=== PATIENT | male | born 1960 | race Caucasian/White ===

== ENCOUNTER 2016-07-14 20:06 | Emergency (ER) | payer SELFPAY ==
[~2016-07-14 20:06] MED LIST: IBUP-1007 PO; PANT40TA5 PO
[2016-07-14 20:45] VITALS: BP 129/85
--- NOTE | 2016-07-14 23:15 | PHYS DOC ---
Past Medical History Past Medical History: Hepatitis, Other Additional Past Medical Histor: Hep C, Hypoglycemic Past Surgical History: Other Additional Past Surgical Histo: finger amputations, lypoma removal Alcohol Use: None Drug Use: None Adult General Chief Complaint Chief Complaint: EYE PROBLEMS HPI HPI Patient is a 56 year old now presents emergency department complaint of a foreign body sensation to his right eye. Patient states is been present for approximately an hour prior to his arrival here in the emergency department. He states that he was walking across a parking lot when he felt something hit him in the eye. He states he's had this sensation since that period of time. 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 He states he was wearing safety goggles at that time. He denies any sensation during his period of work. Patient denies any history of chronic eye problems. He states that he does not work contacts. He has no additional complaints or concerns at this time. Review of Systems Review of Systems Constitutional: Denies fever or chills [] Eyes: Denies change in visual acuity, redness, or eye pain [] HENT: Denies nasal congestion or sore throat [] Respiratory: Denies cough or shortness of breath [] Cardiovascular: No additional information not addressed in HPI [] GI: Denies abdominal pain, nausea, vomiting, bloody stools or diarrhea [] : Denies dysuria or hematuria [] Musculoskeletal: Denies back pain or joint pain [] Integument: Denies rash or skin lesions [] Neurologic: Denies headache, focal weakness or sensory changes [] Endocrine: Denies polyuria or polydipsia [] Current Medications Current Medications Current Medications Medications (Trade) Dose Ordered Sig/Michael Start Time Stop Time Status Last Admin Dose Admin Diphtheria/ Tetanus/Acell Pertussis (Boostrix) 0.5 ml ONCE ONCE 07/14/16 23:45 07/14/16 23:46 DC 07/15/16 00:00 0.5 ML Fluorescein Sodium (Ful-Iram) 1 strip 1X ONCE 07/14/16 23:30 07/14/16 23:31 DC 07/14/16 23:21 1 STRIP Tetracaine HCl (Tetracaine) 2 drop 1X ONCE 07/14/16 23:30 07/14/16 23:31 DC 07/14/16 23:21 2 DROP Allergies Allergies Allergies Coded Allergies Type Severity Reaction Last Updated Verified codeine Allergy Severe STOP BREATHING 09/04/15 Yes Physical Exam Physical Exam Constitutional: Well developed, well nourished, no acute distress, non-toxic appearance. [] HENT: Normocephalic, atraumatic, bilateral external ears normal, oropharynx moist, no oral exudates, nose normal. [] Eyes: PERRLA, EOMI, there is mild subconjunctival injection. Tear film is clear. Anterior chamber is deep, clear and quiet. There is no periorbital lesions or abnormalities. There is a small, brown foreign body embedded into the middle of the cornea. There is no rust ring. Neck: Normal range of motion, no tenderness, supple, no stridor. [] Cardiovascular:Heart rate regular rhythm, no murmur [] Lungs & Thorax: Bilateral breath sounds clear to auscultation [] Abdomen: Bowel sounds normal, soft, no tenderness, no masses, no pulsatile masses. [] Skin: Warm, dry, no erythema, no rash. [] Back: No tenderness, no CVA tenderness. [] Extremities: No tenderness, no cyanosis, no clubbing, ROM intact, no edema. [] Neurologic: Alert and oriented X 3, normal motor function, normal sensory function, no focal deficits noted. [] Psychologic: Affect normal, judgement normal, mood normal. [] Current Patient Data Vital Signs Vital Signs Date Time Temp Pulse Resp B/P Pulse Ox O2 Delivery O2 Flow Rate FiO2 07/14/16 20:45 97.8 79 16 96 Room Air 97.8 EKG EKG [] Radiology/Procedures Radiology/Procedures Procedure note: Right eye was anesthetized with 2 drops of tetracaine ophthalmic solution. Attempted removal of a corneal foreign body with a cotton tip applicator was not successful. The foreign body was removed with the tip of a 20-gauge needle. Fluorescein stain evaluation with a was lamp was performed at that time. There is no evidence of any additional abrasions or retained foreign bodies. Both upper and lower eyelids were everted. Course & Med Decision Making Course & Med Decision Making Pertinent Labs and Imaging studies reviewed. (See chart for details) [] Dragon Disclaimer Dragon Disclaimer This electronic medical record was generated, in whole or in part, using a voice recognition dictation system. Departure Departure Impression: Primary Impression: Corneal foreign body Disposition: HOME, SELF-CARE Condition: GOOD Referrals: NO PCP (PCP) Che JOHNSON MD Patient Instructions: Diphtheria Toxoid; Tetanus Toxoid Adsorbed, DT, Td, Eye - Corneal Foreign Body Additional Instructions: 1. The foreign body was successfully removed from your cornea. There is no evidence of any other retained foreign body. 2. Review the discharge instructions provided for self-care and reasons to return to the emergency department. 3. Call the manager dialysis number provided in your paperwork to schedule follow -up if any questions or concerns about the healing of your cornea. Scripts Hydrocodone/Apap 5-325 ([place] 5-325 Tablet)1 Each Tablet1 Tab PO PRN Q6HRS PRN PAIN #10 TAB Ref 0 Prov:NICK DAUGHERYT 07/15/16 Bacitracin/Polymyxin B Sulfate (Bacitracin-Polymyxin Eye Oint)3.5 Gm Oint...g.3.5 Gm OD QID 7 Days Prov:NICK DAUGHERTY 07/15/16 NICK DAUGHERTY Jul 14, 2016 23:15
[2016-07-14] MEDS ORDERED: FLUORESCEIN OPHTH TEST STRIP. OD ONE (23:30)
[2016-07-14] MEDS ORDERED: TETRACAINE 0.5% OPHTH SOLUTION 4ML BOTTLE. OD ONE (23:30)
[2016-07-14] MEDS ORDERED: DIPHTH,PERTUSS(ACELL),TET TOX 0.5 ML DISP.SYRIN. VAX IM ONE (23:45)
[2016-07-15] MEDS ORDERED: HYDR-971 PO (00:09)
[2016-07-15] MEDS ORDERED: BACI3.5O4 OD (00:09)
== END 2016-07-15 00:09 | disposition home or self-care (01) ==
LOC: ER 20:06
DX: T15.01XA Foreign body in cornea, right eye, initial encounter (principal); Z86.19 Personal history of other infectious and parasitic diseases; Z88.5 Allergy status to narcotic agent; X58.XXXA Exposure to other specified factors, initial encounter; Y93.89 Activity, other specified; Y99.8 Other external cause status; Y92.89 Other specified places as the place of occurrence of the external cause
CPT/HCPCS: 65222; 90471; 90715; 99284-25

== ENCOUNTER 2016-08-10 16:03 | Emergency (ER) | payer SELFPAY ==
[~2016-08-10] VITALS: Ht 170.2 cm; Wt 74.8 kg
[~2016-08-10 16:03] MED LIST changes: +BACI3.5O4 OD; +HYDR-971 PO
[2016-08-10] MEDS ORDERED: TETRACAINE 0.5% OPHTH SOLUTION 4ML BOTTLE. OU ONE (16:45)
[2016-08-10] MEDS ORDERED: FLUORESCEIN OPHTH TEST STRIP. OU ONE (16:45)
--- NOTE | 2016-08-10 17:33 | PHYS DOC ---
Past Medical History Past Medical History: Hepatitis, Other Additional Past Medical Histor: Hep C, Hypoglycemic Past Surgical History: Other Additional Past Surgical Histo: finger amputations, lypoma removal Alcohol Use: None Drug Use: None Adult General Chief Complaint Chief Complaint: FOREIGN BODY/EYES HPI HPI Patient is a 56 year old male who presents with a sensation of a foreign body to the right eye. 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 Review of Systems Review of Systems Constitutional: Denies fever or chills [] Eyes: foreign body right eye Musculoskeletal: Denies back pain or joint pain [] Integument: Denies rash or skin lesions [] Neurologic: Denies headache, focal weakness or sensory changes [] Endocrine: Denies polyuria or polydipsia [] Current Medications Current Medications Current Medications Medications (Trade) Dose Ordered Sig/Michael Start Time Stop Time Status Last Admin Dose Admin Fluorescein Sodium (Ful-Iram) 1 strip 1X ONCE 08/10/16 16:45 08/10/16 16:46 DC 08/10/16 17:19 1 STRIP Tetracaine HCl (Tetracaine) 1 drop 1X ONCE 08/10/16 16:45 08/10/16 16:46 DC 08/10/16 17:19 1 DROP Allergies Allergies Allergies Coded Allergies Type Severity Reaction Last Updated Verified codeine Allergy Severe STOP BREATHING 09/04/15 Yes Physical Exam Physical Exam Constitutional: Well developed, well nourished, no acute distress, non-toxic appearance. [] HENT: Normocephalic, atraumatic, bilateral external ears normal, oropharynx moist, no oral exudates, nose normal. [] Eyes: PERRLA, EOMI, right conjunctiva with no erythema, there is an obvious rust ring in the middle of the cornea. The eye was numbed with tetracaine and stained with fluorescein. The eye was evaluated under Wood's lamp and there is a foreign object in the middle of the cornea consistent with a rust ring. Skin: Warm, dry, no erythema, no rash. [] Back: No tenderness, no CVA tenderness. [] Extremities: No tenderness, no cyanosis, no clubbing, ROM intact, no edema. [] Neurologic: Alert and oriented X 3, normal motor function, normal sensory function, no focal deficits noted. [] Psychologic: Affect normal, judgement normal, mood normal. [] Current Patient Data Vital Signs Vital Signs Date Time Temp Pulse Resp B/P Pulse Ox O2 Delivery O2 Flow Rate FiO2 08/10/16 16:07 97.7 77 18 96 Room Air 97.7 EKG EKG [] Radiology/Procedures Radiology/Procedures [] Course & Med Decision Making Course & Med Decision Making Pertinent Labs and Imaging studies reviewed. (See chart for details) Patient is in the ED with a rust ring in the right eye, informed patient he needs to follow-up with them product safety technician which i provided to have it removed. Patient states he was in the ED last week with a rust ring and another provider removed it. Informed patient I don't remove rust rings in the ED he can follow-up with the eye doctor. He stood up and walked away stating he is going to a different hospital. Dragon Disclaimer Dragon Disclaimer This electronic medical record was generated, in whole or in part, using a voice recognition dictation system. Departure Departure Impression: Primary Impression: Foreign body, eye Additional Impression: Corneal rust ring of right eye Disposition: 07 AGAINST MEDICAL ADVICE Condition: STABLE Referrals: NO PCP (PCP) Problem Qualifiers Primary Impression: Foreign body, eye Encounter type: initial encounter Laterality: right Qualified Code: T15.91XA - Foreign body on external eye, part unspecified, right eye, initial encounter ISSA ARIZMENDI APRN Aug 10, 2016 17:33
== END 2016-08-10 17:29 | disposition left against medical advice (07) ==
LOC: ER 16:03
DX: T15.01XA Foreign body in cornea, right eye, initial encounter (principal); Z86.19 Personal history of other infectious and parasitic diseases; Z89.029 Acquired absence of unspecified finger(s); Z88.5 Allergy status to narcotic agent; X58.XXXA Exposure to other specified factors, initial encounter; Y93.89 Activity, other specified; Y92.89 Other specified places as the place of occurrence of the external cause; Y99.8 Other external cause status
CPT/HCPCS: 99283

== ENCOUNTER 2017-05-22 21:04 | Emergency (ER) | payer SELFPAY ==
[2017-05-22 22:04] LABS: ADD MAN DIFF? NO
[2017-05-22 22:07] LABS: BASO # 0.1 x10^3/uL (0.0-0.2); BASO % 1 % (0-3); EOS # 0.1 x10^3/uL (0.0-0.7); EOS % 1 % (0-3); HEMATOCRIT 43.8 % (39.0-53.0); HEMOGLOBIN 14.6 g/dL (13.0-17.5); LYMPH # 3.3 x10^3/uL (1.0-4.8); LYMPH % 23 % (24-48); MEAN CORPUSCULAR HEMOGLOBIN 30 pg (25-35); MEAN CORPUSCULAR HGB CONC 33 g/dL (31-37); MEAN CORPUSCULAR VOLUME 91 fL (79-100); MONO # 1.3 x10^3/uL (0.0-1.1); MONO % 9 % (0-9); NEUT # 9.4 x10^3uL (1.8-7.7); NEUT % 66 % (31-73); PLATELET COUNT 243 x10^3/uL (140-400); RED BLOOD COUNT 4.81 x10^6/uL (4.30-5.70); RED CELL DISTRIBUTION WIDTH 13.5 % (11.5-14.5); WHITE BLOOD COUNT 14.2 x10^3/uL (4.0-11.0)
[2017-05-22 22:21] LABS: ANION GAP 11 (6-14); BLOOD UREA NITROGEN 19 mg/dL (8-26); CALCIUM 8.5 mg/dL (8.5-10.1); CARBON DIOXIDE 29 mmol/L (21-32); CHLORIDE 105 mmol/L (98-107); CREATININE 1.2 mg/dL (0.7-1.3); GFR 62.6; GLUCOSE 137 mg/dL (70-99); POTASSIUM 3.5 mmol/L (3.5-5.1); SODIUM 145 mmol/L (136-145)
[2017-05-22 22:22] LABS: LIPASE 72 U/L (73-393)
[2017-05-22 22:26] LABS: TROPONINI < 0.017 ng/mL (0.000-0.055)
[2017-05-22 23:38] LABS: D-DIMER < 0.27 ug/mlFEU (0.00-0.50)
== END 2017-05-22 23:59 | disposition home or self-care (01) ==
LOC: ER 23:59
DX: F41.9 Anxiety disorder, unspecified (principal); R45.1 Restlessness and agitation; T38.0X5A Adverse effect of glucocorticoids and synthetic analogues, initial encounter; Z86.19 Personal history of other infectious and parasitic diseases; Z88.5 Allergy status to narcotic agent; Y92.89 Other specified places as the place of occurrence of the external cause
CPT/HCPCS: 36415; 71045; 80048; 83690; 84484; 85025; 85379; 93005; 99285-25

== ENCOUNTER 2017-07-09 18:19 | Emergency (ER) | payer SELFPAY ==
[2017-07-09 19:24] LABS: ADD MAN DIFF? NO
[2017-07-09 19:30] LABS: BASO # 0.1 x10^3/uL (0.0-0.2); BASO % 1 % (0-3); EOS # 0.2 x10^3/uL (0.0-0.7); EOS % 2 % (0-3); HEMATOCRIT 42.9 % (39.0-53.0); HEMOGLOBIN 14.7 g/dL (13.0-17.5); LYMPH # 2.2 x10^3/uL (1.0-4.8); LYMPH % 22 % (24-48); MEAN CORPUSCULAR HEMOGLOBIN 31 pg (25-35); MEAN CORPUSCULAR HGB CONC 34 g/dL (31-37); MEAN CORPUSCULAR VOLUME 90 fL (79-100); MONO % 10 % (0-9); NEUT # 6.5 x10^3uL (1.8-7.7); NEUT % 66 % (31-73); PLATELET COUNT 222 x10^3/uL (140-400); RED BLOOD COUNT 4.77 x10^6/uL (4.30-5.70); RED CELL DISTRIBUTION WIDTH 13.4 % (11.5-14.5); WHITE BLOOD COUNT 9.9 x10^3/uL (4.0-11.0)
[2017-07-09] MEDS: ASPIRIN CHEWABLE 81 MG TABLET. PO (19:34)
[2017-07-09 19:42] LABS: INR 1.1 (0.8-1.1); PARTIAL THROMBOPLASTIN TIME 33 SEC (24-38); PROTHROMBIN TIME PATIENT 13.5 SEC (11.7-14.0)
[2017-07-09 19:43] LABS: ANION GAP 12 (6-14); BLOOD UREA NITROGEN 15 mg/dL (8-26); CALCIUM 8.7 mg/dL (8.5-10.1); CARBON DIOXIDE 26 mmol/L (21-32); CHLORIDE 105 mmol/L (98-107); CREATININE 1.1 mg/dL (0.7-1.3); GLUCOSE 121 mg/dL (70-99); POTASSIUM 3.8 mmol/L (3.5-5.1); SODIUM 143 mmol/L (136-145)
[2017-07-09 19:49] LABS: ALBUMIN 3.6 g/dL (3.4-5.0); ALK PHOS 135 U/L (46-116); ALT (SGPT) 37 U/L (16-63); AST (SGOT) 21 U/L (15-37); DIRECT BILIRUBIN 0.1 mg/dL (0.0-0.2); LIPASE 56 U/L (73-393); TOTAL BILIRUBIN 0.3 mg/dL (0.2-1.0); TOTAL PROTEIN 6.9 g/dL (6.4-8.2)
[2017-07-09 19:50] LABS: TROPONINI < 0.017 ng/mL (0.000-0.055)
[2017-07-09 19:54] LABS: NT-PRO BNP 46 pg/mL (0-124)
[2017-07-09] MEDS ORDERED: ONDANSETRON PF 4 MG/2 ML VIAL. IV (20:15)
[2017-07-09] MEDS: IV NORMAL SALINE 1000ML BAG 1,000 ML IV (21:05)
== END 2017-07-09 21:10 | disposition left against medical advice (07) ==
LOC: ER 18:19 → 6 SOUTH 20:11
DX: R07.9 Chest pain, unspecified (principal); Z88.5 Allergy status to narcotic agent
CPT/HCPCS: 36415; 71045; 80048; 80076; 83690; 83880; 84484; 85025; 85610; 85730; 93005; 99285-25; J7030

== ENCOUNTER 2017-07-09 23:11 | Inpatient (IN) | payer SELFPAY ==
[2017-07-09 23:56] LABS: TROPONINI < 0.017 ng/mL (0.000-0.055)
[2017-07-10] MEDS ORDERED: ONDANSETRON PF 4 MG/2 ML VIAL. IV
[2017-07-10] MEDS ORDERED: NITROGLYCERIN SUBLINGUAL 0.4 MG BOTTLE OF 25. SL
[2017-07-10] MEDS: IV NORMAL SALINE 1000ML BAG 1,000 ML IV (00:02)
[2017-07-10 05:08] LABS: TROPONINI < 0.017 ng/mL (0.000-0.055)
[2017-07-10 06:27] LABS: TROPONINI < 0.017 ng/mL (0.000-0.055)
[2017-07-10 08:33] LABS: CHOLESTEROL 121 mg/dL (0-200); HDLC 51 mg/dL (40-60); LDLC 63 mg/dL (0-100); NON-HDL CHOLESTEROL 70 mg/dL (0-129); TRIGLYCERIDES 37 mg/dL (0-150); VLDLC 7 mg/dL (0-40)
[2017-07-10 08:40] LABS: CHOLESTEROL/HDL RATIO 2.4
[2017-07-10] MEDS ORDERED: HYDROcodone/APAP 5/325MG 1 TAB TABLET PO (09:15)
[2017-07-10] MEDS: PANTOPRAZOLE 40 MG TABLET.DR. PO (09:51)
[2017-07-10] MEDS: LIDOCAINE (700MG/PATCH) PATCH. TD (09:51)
[2017-07-10 09:55] LABS: THYROID STIM HORMONE (TSH) 4.912 uIU/mL (0.358-3.74)
[2017-07-10] MEDS: BACITRACIN/POLYMYXIN B OPHTH OINTMENT 3.5GM TUBE. OD ×2 (10:00→12:26)
[2017-07-10 13:32] LABS: BARBITURATES NEG (NEG); BENZODIAZEPINES NEG (NEG); CANNABINOIDS NEG (NEG); COCAINE NEG (NEG); METHADONE NEG (NEG); OPIATES NEG (NEG); PHENCYCLIDINE NEG (NEG)
[2017-07-10 13:33] LABS: AMPHETAMINE/METHAMPHETAMINE NEG (NEG); ETHANOL, URINE NEG (NEG)
== END 2017-07-10 14:46 | disposition home or self-care (01) ==
LOC: 6 SOUTH 23:57 → ER 23:11
PROVIDERS: Internal Medicine
DX: R07.89 Other chest pain (principal); K21.9 Gastro-esophageal reflux disease without esophagitis; T14.8XXA Other injury of unspecified body region, initial encounter; X58.XXXA Exposure to other specified factors, initial encounter; Z82.49 Family history of ischemic heart disease and other diseases of the circulatory system; Z87.891 Personal history of nicotine dependence; Z88.8 Allergy status to other drugs, medicaments and biological substances; Y93.89 Activity, other specified; Y92.89 Other specified places as the place of occurrence of the external cause; Y99.8 Other external cause status; Z89.022 Acquired absence of left finger(s)
CPT/HCPCS: 36415; 80061; 80307; 84443; 84484; 93005; 93306; 99285-25; J7030

== ENCOUNTER 2018-04-20 19:03 | Emergency (ER) | payer SELFPAY ==
[~2018-04-20] VITALS: Ht 170.2 cm; Wt 77.1 kg
[~2018-04-20 19:03] MED LIST changes: +HYDR-3164 PO; -HYDR-971 PO
[2018-04-20 19:15] VITALS: BP 175/87
--- NOTE | 2018-04-21 04:41 | PHYS DOC ---
Past Medical History Past Medical History: Hepatitis, Other Additional Past Medical Histor: Hep C, Hypoglycemic, Past Surgical History: Other Additional Past Surgical Histo: finger amputations, lypoma removal Alcohol Use: None Drug Use: None Adult General Chief Complaint Chief Complaint: DIFFICULTY SWALLOWING HPI HPI Patient is a 57 year old male with history of dysphagia and poor dentition who presents with difficulty swallowing after eating a cheeseburger. Patient is not able to chew the well and reports sticking sensation in his throat. He is able to drink water pertinent review the arrival and can eat crackers while in the emergency department. Denies foreign body sensation. Patient has not been evaluated by a GI physician for this condition. No chest pain shortness of breath, cough or choking episodes. No other acute symptoms or complaints. [] Review of Systems Review of Systems Review symptoms as per history of present illness. All other review symptoms are negative. All other systems were reviewed and found to be within normal limits, except as documented in this note. Allergies Allergies Allergies Coded Allergies Type Severity Reaction Last Updated Verified codeine Allergy Severe STOP BREATHING 09/04/15 Yes Physical Exam Physical Exam Constitutional: Well developed, well nourished, no acute distress, non-toxic appearance. [] HENT: Normocephalic, atraumatic, bilateral external ears normal, oropharynx moist, no oral exudates, nose normal. [] Eyes: PERRLA, EOMI, conjunctiva normal, no discharge. [] Neck: Normal range of motion, no tenderness, supple, no stridor. [] Neurologic: Alert and oriented X 3, normal motor function, normal sensory function, no focal deficits noted. [] Psychologic: Affect normal, judgement normal, mood normal. [] Current Patient Data Vital Signs Vital Signs Date Time Temp Pulse Resp B/P (MAP) Pulse Ox O2 Delivery O2 Flow Rate FiO2 04/20/18 19:15 98.0 69 16 175/87 (116) 97 Room Air 98.0 EKG EKG [] Radiology/Procedures Radiology/Procedures [] Course & Med Decision Making Course & Med Decision Making Pertinent Labs and Imaging studies reviewed. (See chart for details) [Patient able to drink and swallow without difficulty in the ED. Recommend supportive care and PCP follow-up for GI referral.] Dragon Disclaimer Dragon Disclaimer This electronic medical record was generated, in whole or in part, using a voice recognition dictation system. Departure Departure Impression: Primary Impression: Dysphagia Disposition: 01 HOME, SELF-CARE Condition: STABLE Patient Instructions: Dysphagia Additional Instructions: Please take Pepcid 20 mg twice daily and follow strict soft diet. Follow up with local primary care physician for consideration of GI physician referral. Return to the ED if new or worsening symptoms. JOSE CORBETT DO Apr 21, 2018 04:41
== END 2018-04-20 19:58 | disposition home or self-care (01) ==
LOC: ER 19:03
DX: R13.10 Dysphagia, unspecified (principal); Z86.19 Personal history of other infectious and parasitic diseases; Z88.5 Allergy status to narcotic agent
CPT/HCPCS: 99281

== ENCOUNTER 2018-10-15 18:28 | Emergency (ER) | payer SELFPAY ==
[~2018-10-15] VITALS: Ht 170.2 cm; Wt 79.4 kg
[2018-10-15 19:12] VITALS: BP 142/92
--- NOTE | 2018-10-15 19:46 | PHYS DOC ---
Past Medical History Past Medical History: Hepatitis, Other Additional Past Medical Histor: Hep C, Hypoglycemic, (MICHAEL QUEEN APRN) Past Surgical History: Tonsillectomy, Other Additional Past Surgical Histo: finger amputations, lypoma removal (MICHAEL QUEEN APRN) Alcohol Use: None Drug Use: None (MICHAEL QUEEN APRN) Adult General Chief Complaint Chief Complaint: EYE PROBLEMS HPI HPI Patient is a 58 year old male who presents with right eye pain has been ongoing for 2 hours. The patient states she was walking across a parking lot and the wind was blowing all the sudden his eye became irritated and painful. The patient rates his pain as 3 out of 10 and states it is just irritating. They see tried irrigating however the eye still hurts. (MICHAEL QUEEN APRN) Review of Systems Review of Systems Constitutional: Denies fever or chills [] Eyes: Denies change in visual acuity, Reports redness, and eye pain [] HENT: Denies nasal congestion or sore throat [] Respiratory: Denies cough or shortness of breath [] Cardiovascular: No additional information not addressed in HPI [] GI: Denies abdominal pain, nausea, vomiting, bloody stools or diarrhea [] : Denies dysuria or hematuria [] Musculoskeletal: Denies back pain or joint pain [] Integument: Denies rash or skin lesions [] Neurologic: Denies headache, focal weakness or sensory changes [] Endocrine: Denies polyuria or polydipsia [] Complete systems were reviewed and found to be within normal limits, except as documented in this note. (MICHAEL QUEEN APRN) Allergies Allergies Allergies Coded Allergies Type Severity Reaction Last Updated Verified codeine Allergy Severe STOP BREATHING 09/04/15 Yes (LARISSA RIGGS MD) Physical Exam Physical Exam Constitutional: Well developed, well nourished, no acute distress, non-toxic appearance. [] HENT: Normocephalic, atraumatic, bilateral external ears normal, oropharynx moist, no oral exudates, nose normal. [] Eyes: PERRLA, EOMI, conjunctiva red on the right side, has black speck of dirt under upper right side of eye lid, no discharge. [] Neck: Normal range of motion, no tenderness, supple, no stridor. [] Cardiovascular:Heart rate regular rhythm, no murmur [] Lungs & Thorax: Bilateral breath sounds clear to auscultation [] Abdomen: Bowel sounds normal, soft, no tenderness, no masses, no pulsatile masses. [] Skin: Warm, dry, no erythema, no rash. [] Back: No tenderness, no CVA tenderness. [] Extremities: No tenderness, no cyanosis, no clubbing, ROM intact, no edema. [] Neurologic: Alert and oriented X 3, normal motor function, normal sensory function, no focal deficits noted. [] Psychologic: Affect normal, judgement normal, mood normal. [] (MICHAEL QUEEN APRN) Current Patient Data Vital Signs Vital Signs Date Time Temp Pulse Resp B/P (MAP) Pulse Ox O2 Delivery O2 Flow Rate FiO2 10/15/18 19:12 97.9 86 17 142/92 (109) 100 Room Air 97.9 (LARISSA RIGGS MD) EKG EKG [] (MICHAEL QUEEN APRN) Radiology/Procedures Radiology/Procedures [] (MICHAEL QUEEN APRN) Course & Med Decision Making Course & Med Decision Making Pertinent Labs and Imaging studies reviewed. (See chart for details) Will have nursing staff irrigate the eye. Nursing staff irrigated the eye and the foreign body came out. Patient states that he feels better. Will d/c home. (MICHAEL QUEEN APRN) Course & Med Decision Making Staff Physician Addendum: I was working in the ER during the course of this patient's visit. I was arnold ilable for consultation as needed, but I was not directly involved in the care of this patient. (LARISSA RIGGS MD) Dragon Disclaimer Dragon Disclaimer This electronic medical record was generated, in whole or in part, using a voice recognition dictation system. (MICHAEL QUEEN APRN) Departure Departure Impression: Primary Impression: Foreign body, eye Disposition: HOME, SELF-CARE Condition: STABLE Referrals: NO PCP (PCP) Patient Instructions: Eye - Foreign Body Additional Instructions: Thank you for visiting [facility]. We appreciate you trusting us with your care. If any additional problems come up don't hesitate to return to visit us. Please follow up with your primary care provider so they can plan additional care if needed and know about the problem that you had. If symptoms worsen come back to the Emergency Department. Any concerning symptoms that start such as chest pain, shortness of Air, weakness or numbness on one side of the body, running high fevers or any other concerning symptoms return to the ER. Problem Qualifiers Primary Impression: Foreign body, eye Encounter type: initial encounter Laterality: right Qualified Codes: T15.91XA - Foreign body on external eye, part unspecified, right eye, initial encounter MICHAEL QUEEN APRN Oct 15, 2018 19:46 LARISSA RIGGS MD Oct 18, 2018 18:47
== END 2018-10-15 20:18 | disposition home or self-care (01) ==
LOC: ER 18:28
DX: T15.91XA Foreign body on external eye, part unspecified, right eye, initial encounter (principal); Z88.5 Allergy status to narcotic agent; Z90.89 Acquired absence of other organs
CPT/HCPCS: 99282; 99284

== ENCOUNTER 2018-10-20 18:44 | Emergency (ER) | payer SELFPAY ==
[~2018-10-20] VITALS: Ht 170.2 cm; Wt 77.1 kg
[2018-10-20 18:49] VITALS: BP 179/92
--- NOTE | 2018-10-20 19:24 | PHYS DOC ---
Past Medical History Past Medical History: Hepatitis, Other Additional Past Medical Histor: Hep C, Hypoglycemic, Past Surgical History: Tonsillectomy, Other Additional Past Surgical Histo: finger amputations, lypoma removal Smoking: Quit Greater Than 1 Year Alcohol Use: None Drug Use: None Adult General Chief Complaint Chief Complaint: LOWER BACK PAIN OR INJURY HPI HPI Patient is a 58 year old male who presents with back pain that started this afternoon. Patient was location of the pain as left lower back. The patient states that he's had this back pain once before long time ago and went away. Denies any trauma. Rates his pain as 8 out of 10 and sharp. Has not taken any medication for the pain before arrival. Review of Systems Review of Systems Constitutional: Denies fever or chills [] Eyes: Denies change in visual acuity, redness, or eye pain [] HENT: Denies nasal congestion or sore throat [] Respiratory: Denies cough or shortness of breath [] Cardiovascular: No additional information not addressed in HPI [] GI: Denies abdominal pain, nausea, vomiting, bloody stools or diarrhea [] : Denies dysuria or hematuria [] Musculoskeletal: Reports back pain denies joint pain [] Integument: Denies rash or skin lesions [] Neurologic: Denies headache, focal weakness or sensory changes [] Endocrine: Denies polyuria or polydipsia [] Complete systems were reviewed and found to be within normal limits, except as documented in this note. Current Medications Current Medications Current Medications Medications (Trade) Dose Ordered Sig/[facility] Start Time Stop Time Status Last Admin Dose Admin Ketorolac Tromethamine (Toradol Im) 30 mg 1X ONCE 10/20/18 19:30 10/20/18 19:31 DC 10/20/18 19:31 30 MG Allergies Allergies Allergies Coded Allergies Type Severity Reaction Last Updated Verified codeine Allergy Severe STOP BREATHING 09/04/15 Yes Physical Exam Physical Exam Constitutional: Well developed, well nourished, no acute distress, non-toxic appearance. [] HENT: Normocephalic, atraumatic, bilateral external ears normal, oropharynx moist, no oral exudates, nose normal. [] Eyes: PERRLA, EOMI, conjunctiva normal, no discharge. [] Neck: Normal range of motion, no tenderness, supple, no stridor. [] Cardiovascular:Heart rate regular rhythm, no murmur [] Lungs & Thorax: Bilateral breath sounds clear to auscultation [] Abdomen: Bowel sounds normal, soft, no tenderness, no masses, no pulsatile masses. [] Skin: Warm, dry, no erythema, no rash. [] Back: Lumbar Tenderness and tenderness to the left side of the lumbar spine, no CVA tenderness. [] Extremities: No tenderness, no cyanosis, no clubbing, ROM intact, no edema. [] Neurologic: Alert and oriented X 3, normal motor function, normal sensory function, no focal deficits noted. [] Psychologic: Affect normal, judgement normal, mood normal. [] Current Patient Data Lab Values Laboratory Tests Test 10/20/18 19:15 Urine Collection Type Unknown Urine Color Yellow Urine Clarity Clear Urine pH 6.0 Urine Specific [place] 1.025 Urine Protein Negative mg/dL (NEG-TRACE) Urine Glucose (UA) Negative mg/dL (NEG) Urine Ketones (Stick) Negative mg/dL (NEG) Urine Blood Negative (NEG) Urine Nitrite Negative (NEG) Urine Bilirubin Negative (NEG) Urine Urobilinogen Dipstick 0.2 mg/dL (0.2 mg/dL) Urine Leukocyte Esterase Negative (NEG) Urine RBC 0 /HPF (0-2) Urine WBC 0 /HPF (0-4) Urine Squamous Epithelial Cells Occ /LPF Urine Bacteria 0 /HPF (0-FEW) EKG EKG [] Radiology/Procedures Radiology/Procedures Preliminary Xray is read by Dr. Lawrence No acute findings.[] Course & Med Decision Making Course & Med Decision Making Pertinent Labs and Imaging studies reviewed. (See chart for details) Will get a x-ray of the lumbar spine. Will check his UA, and give Toradol. The patient is driving home so will prescribe Flexeril for him to take at home. x-ray and urine is negative. Dragon Disclaimer Dragon Disclaimer This electronic medical record was generated, in whole or in part, using a voice recognition dictation system. Departure Departure Impression: Primary Impression: Back pain Disposition: HOME, SELF-CARE Condition: STABLE Referrals: NO PCP (PCP) Patient Instructions: Musculoskeletal Pain Additional Instructions: Thank you for visiting [facility]. We appreciate you trusting us with your care. If any additional problems come up don't hesitate to return to visit us. Please follow up with your primary care provider so they can plan additional care if needed and know about the problem that you had. If symptoms worsen come back to the Emergency Department. Any concerning symptoms that start such as chest pain, shortness of Air, weakness or numbness on one side of the body, running high fevers or any other concerning symptoms return to the ER. Please fill your medications at any pharmacy and follow the prescription instructions. Scripts Cyclobenzaprine Hcl (CYCLOBENZAPRINE HCL) 10 Mg Tablet 1 TAB PO TID PRN for MUSCLE SPASMS, #30 TAB Prov: MICHAEL QUEEN APRN 10/20/18 Problem Qualifiers Primary Impression: Back pain Back pain location: low back pain Chronicity: acute Back pain laterality: left Sciatica presence: without sciatica Qualified Codes: M54.5 - Low back pain MICHAEL QUEEN APRN Oct 20, 2018 19:24
[2018-10-20 19:28] LABS: BILIRUBIN,URINE NEGATIVE (NEG); CLARITY,URINE CLEAR; COLOR,URINE YELLOW; NITRITE,URINE NEGATIVE (NEG); PROTEIN,URINE NEGATIVE (NEG-TRACE); UROBILINOGEN,URINE 0.2 mg/dL (0.2 mg/dL)
[2018-10-20] MEDS ORDERED: KETOROLAC 60 MG/2 ML VIAL. IM ONE (19:30)
[2018-10-20 19:34] LABS: BACTERIA,URINE 0 /HPF (0-FEW); RBC,URINE 0 /HPF (0-2); SQUAMOUS EPITHELIAL CELL,UR OCC /LPF; WBC,URINE 0 /HPF (0-4)
[2018-10-20] MEDS ORDERED: CYCL10TA2 PO (19:43)
--- NOTE | 2018-10-21 08:04 | RAD ---
EXAM: AP, lateral and lumbosacral spot views of the lumbar spine DATE: 10/20/2018 7:16 PM INDICATION: low back pain COMPARISON: No Prior FINDINGS: Vertebral body heights are preserved. Trace disc height loss T12-L1, L1-2, L5-S1. Mild facet degenerative changes L4-5, L5-S1. No evidence for fracture. Mild straightening of the lumbar spine. No spondylolisthesis. IMPRESSION: No evidence for acute fracture or subluxation. Electronically signed by: Ar Condon MD (10/21/2018 8:02 AM) [facility]
== END 2018-10-20 20:04 | disposition home or self-care (01) ==
LOC: ER 18:44
DX: M54.5 Low back pain (principal); Z90.89 Acquired absence of other organs; Z87.891 Personal history of nicotine dependence; Z88.5 Allergy status to narcotic agent
CPT/HCPCS: 72100; 81001; 96372; 99285; J1885

== ENCOUNTER 2018-12-14 21:20 | Emergency (ER) | payer SELFPAY ==
[~2018-12-14] VITALS: Ht 170.2 cm; Wt 77.1 kg
[~2018-12-14 21:20] MED LIST changes: +CYCL10TA2 PO; -PANT40TA5 PO; +PANT40TA77 PO
[2018-12-14 22:10] VITALS: BP 141/85
--- NOTE | 2018-12-14 22:22 | PHYS DOC ---
Past Medical History Past Medical History: Hepatitis, Other Additional Past Medical Histor: Hep C, Hypoglycemic, (WYATT MADRIGAL APRN) Past Surgical History: Tonsillectomy, Other Additional Past Surgical Histo: finger amputations, lypoma removal (WYATT MADRIGAL APRN) Alcohol Use: None Drug Use: None (WYATT MADRIGAL APRN) Adult General Chief Complaint Chief Complaint: INSECT BITE [facility] HPI Patient is a 58 year old male who presents to the emergency Department today with complaints of insect bites all over his chest, back, abdomen, and upper arms. Pt states he just noticed the bites tonight. He denies any pain, drainage, or bleeding from the sites. He reports that some of the areas are itchy. Pt states he was outside earlier today but didn't notice the bites until tonight. Pt states his indoor animals are treated for fleas with oral medication regularly. ROS Pt denies any fever, sore throat, ear pain, shortness of breath, wheezing, nausea, vomiting, or diarrhea. He denies any new medications, foods, detergents, or perfumes. All other ROS is neg unless otherwise noted in HPI. (WYATT MADRIGAL APRN) Review of Systems Review of Systems See Above (WYATT MADRIGAL APRN) Allergies Allergies Allergies Coded Allergies Type Severity Reaction Last Updated Verified codeine Allergy Severe STOP BREATHING 09/04/15 Yes (MICHAEL CODY DO) Physical Exam Physical Exam See Above Constitutional: Well developed, well nourished, no acute distress, non-toxic appearance. [] HENT: Normocephalic, atraumatic, bilateral external ears normal, oropharynx moist, nose normal. [] Eyes: conjunctiva normal, no discharge. [] Neck: Normal range of motion, no stridor. [] Cardiovascular:Heart rate regular rhythm, no murmur [] Lungs & Thorax: Bilateral breath sounds clear to auscultation [] Skin: Warm, dry, no erythema; scattered erythremic patches with central punctum consistent with allergic reaction to insect sting/bite noted to trunk, back, and upper arms bilat Back: No tenderness Extremities: No tenderness, no cyanosis, ROM intact, no edema. [] Neurologic: Alert and oriented X 3, no focal deficits noted. [] Psychologic: Affect normal, judgement normal, mood normal. [] (WYATT MADRIGAL APRN) Current Patient Data Vital Signs Vital Signs Date Time Temp Pulse Resp B/P (MAP) Pulse Ox O2 Delivery O2 Flow Rate FiO2 12/14/18 22:10 97.7 76 18 141/85 (103) 94 Room Air 97.7 (MICHAEL CODY DO) EKG EKG [] (WYATT MADRIGAL APRN) Radiology/Procedures Radiology/Procedures [] (WYATT MADRIGAL APRN) Course & Med Decision Making Course & Med Decision Making Pertinent Labs and Imaging studies reviewed. (See chart for details) dx: insect sting/bite allergic reaction Advised patient to use [id number] hydrocortisone cream or Benadryl cream as needed. Recommend oral Benadryl every 6 hours as needed. Cool washcloth. Follow-up with primary care doctor if symptoms persist, return to the ER symptoms worsen. Patient verbalized an understanding of home care, medications, follow-up, and return to ED instructions and was in agreement with the plan of care. [] (WYATT MADRIGAL APRN) Dragon Disclaimer Dragon Disclaimer This electronic medical record was generated, in whole or in part, using a voice recognition dictation system. (WYATT MADRIGAL APRN) Departure Departure Impression: Primary Impression: Allergic reaction to insect bite Disposition: 01 HOME, SELF-CARE Condition: STABLE Referrals: NO PCP (PCP) Patient Instructions: Insect Bite, [id number] Additional Instructions: Recommend application of [id number] hydrocortisone cream, or Benadryl cream to the red areas as needed for itching, take Benadryl 25 mg every 6 hours as needed to help reduce reaction. You might apply ice packs to the areas for r elief. Follow-up with your primary care doctor if symptoms persist, return to the ER if symptoms worsen. Attending Signature Attending Signature I have reviewed the PA/APPRAISER ART's note and plan of care. I was available for consultation as needed during the patient's visit in the emergency department. I agree with the clinical impression, plan, and disposition. (MICHAEL CODY DO) WYATT MADRIGAL APRN Dec 14, 2018 22:22 MICHAEL CODY DO Dec 15, 2018 01:23
== END 2018-12-14 22:47 | disposition home or self-care (01) ==
LOC: ER 21:20
DX: T63.481A Toxic effect of venom of other arthropod, accidental (unintentional), initial encounter (principal); Z90.89 Acquired absence of other organs; Z89.029 Acquired absence of unspecified finger(s); Z88.5 Allergy status to narcotic agent; Y92.89 Other specified places as the place of occurrence of the external cause
CPT/HCPCS: 99281

== ENCOUNTER 2018-12-17 21:06 | Emergency (ER) | payer SELFPAY ==
[~2018-12-17] VITALS: Ht 170.2 cm; Wt 77.1 kg
[2018-12-17 21:25] VITALS: BP 138/96
[2018-12-17] MEDS ORDERED: SULF1TAB24 PO (21:36)
--- NOTE | 2018-12-17 21:37 | PHYS DOC ---
Past Medical History Past Medical History: No Pertinent History Additional Past Medical Histor: Hep C (ISSA ARIZMENDI APRN) Past Surgical History: No Surgical History Additional Past Surgical Histo: Traumatic finger amputation age 18, lipoma removal (ISSA ARIZMENDI APRN) Alcohol Use: None Drug Use: None (ISSA ARIZMENDI APRN) Adult General Chief Complaint Chief Complaint: FOOT INJURY PAIN HPI HPI Patient is a 58 year old male with no significant medical history who presents to the ED today complaining of infected insect bites to the right foot. Patient states his had the insect bite for roughly 3 days. Was seen in the ED 3 days ago. Has been using hydrocortisone as recommended but has noted areas of cellulitis of the foot. Denies any fever. Denies any nausea, vomiting. (ISSA ARIZMENDI APRN) Review of Systems Review of Systems Constitutional: Denies fever or chills [] Musculoskeletal: Denies back pain or joint pain [] Integument: Reports right foot infected insect bite Neurologic: Denies headache, focal weakness or sensory changes [] All other systems were reviewed and found to be within normal limits, except as documented in this note. (ISSA ARIZMENDI APRN) Current Medications Current Medications Current Medications Medications (Trade) Dose Ordered Sig/Michael Start Time Stop Time Status Last Admin Dose Admin Diphtheria/ Tetanus/Acell Pertussis (Boostrix) 0.5 ml ONCE ONCE 12/17/18 22:00 12/17/18 21:53 DC 12/17/18 21:44 0.5 ML Trimethoprim/ Sulfamethoxazole (Bactrim Ds) 1 tab 1X ONCE 12/17/18 22:00 12/17/18 21:53 DC 12/17/18 21:44 1 TAB (LARISSA RIGGS MD) Allergies Allergies Allergies Coded Allergies Type Severity Reaction Last Updated Verified codeine Allergy Severe STOP BREATHING 09/04/15 Yes (LARISSA RIGGS MD) Physical Exam Physical Exam Constitutional: Well developed, well nourished, no acute distress, non-toxic appearance. [] Skin: Warm, dry, right ventral foot with scattered areas of cellulitis consistent with insect bites that have become infected. No drainage. Full range of motion to the right foot. +2 right pedal pulse. Back: No tenderness, no CVA tenderness. [] Extremities: No tenderness, no cyanosis, no clubbing, ROM intact, no edema. [] Neurologic: Alert and oriented X 3, normal motor function, normal sensory function, no focal deficits noted. [] Psychologic: Affect normal, judgement normal, mood normal. [] (ISSA ARIZMENDI APRN) Current Patient Data Vital Signs Vital Signs Date Time Temp Pulse Resp B/P (MAP) Pulse Ox O2 Delivery O2 Flow Rate FiO2 12/17/18 21:25 98.0 110 18 95 Room Air 98.0 (LARISSA RIGGS MD) EKG EKG [] (ISSA ARIZMENDI APRN) Radiology/Procedures Radiology/Procedures [] (ISSA ARIZMENDI APRN) Course & Med Decision Making Course & Med Decision Making Pertinent Labs and Imaging studies reviewed. (See chart for details) This is a 58-year-old male patient presents to the ED today with cellulitis of the right foot from insect bites. Will be discharged on Bactrim. Tetanus up-to-dated. Wound care instructions and return precautions provided. (ISSA ARIZMENDI APRN) Course & Med Decision Making Staff Physician Addendum: I was working in the ER during the course of this patient's visit. I was available for consultation as needed, but I was not directly involved in the ca re of this patient. (LARISSA RIGGS MD) Dragon Disclaimer Dragon Disclaimer This electronic medical record was generated, in whole or in part, using a voice recognition dictation system. (ISSA ARIZMENDI APRN) Departure Departure Impression: Primary Impression: Cellulitis of right foot Disposition: HOME, SELF-CARE Condition: STABLE Referrals: NO PCP (PCP) Follow-up with your doctor in 1-2 weeks Patient Instructions: Cellulitis, [id number] Additional Instructions: You have infected insect bites to the right foot. Take the prescribed antibiotics as ordered until completed. Follow-up with your doctor in 1-2 weeks. Scripts Sulfamethoxazole/Trimethoprim (BACTRIM DS TABLET) 1 Each Tablet 1 TAB PO BID, #20 TAB Prov: ISSA ARIZMENDI APRN 12/17/18 ISSA ARIZMENDI APRN Dec 17, 2018 21:37 LARISSA RIGGS MD Dec 21, 2018 05:30
[2018-12-17] MEDS ORDERED: DIPHTH,PERTUSS(ACELL),TET TOX 0.5 ML DISP.SYRIN. VAX IM ONE (22:00)
[2018-12-17] MEDS ORDERED: SMZ/TMP 800/160MG TABLET. PO ONE (22:00)
== END 2018-12-17 21:53 | disposition home or self-care (01) ==
LOC: ER 21:06
DX: S90.861A Insect bite (nonvenomous), right foot, initial encounter (principal); Z88.5 Allergy status to narcotic agent; W57.XXXA Bitten or stung by nonvenomous insect and other nonvenomous arthropods, initial encounter; Y93.89 Activity, other specified; Y92.89 Other specified places as the place of occurrence of the external cause; Y99.8 Other external cause status
CPT/HCPCS: 90471; 90715; 96372; 99283

== ENCOUNTER 2019-05-01 17:22 | Emergency (ER) | payer SELFPAY ==
[~2019-05-01] VITALS: Ht 175.3 cm; Wt 72.6 kg
[~2019-05-01 17:22] MED LIST changes: +SULF1TAB24 PO
[2019-05-01 18:05] LABS: BILIRUBIN,URINE NEGATIVE (NEG); CLARITY,URINE CLEAR; COLOR,URINE YELLOW; NITRITE,URINE NEGATIVE (NEG); PROTEIN,URINE NEGATIVE (NEG-TRACE); UROBILINOGEN,URINE 0.2 mg/dL (0.2 mg/dL)
[2019-05-01 18:12] LABS: BARBITURATES NEG (NEG); BENZODIAZEPINES NEG (NEG); CANNABINOIDS NEG (NEG); COCAINE NEG (NEG); METHADONE NEG (NEG); OPIATES NEG (NEG); PHENCYCLIDINE NEG (NEG)
[2019-05-01 18:13] LABS: BACTERIA,URINE 0 /HPF (0-FEW); RBC,URINE 0 /HPF (0-2)
[2019-05-01 18:17] LABS: AMPHETAMINE/METHAMPHETAMINE NEG (NEG)
--- NOTE | 2019-05-01 18:20 | PHYS DOC ---
Past Medical History Past Medical History: Other Additional Past Medical Histor: Hep C, HYPOGLYCEMIC (LASHA AVILA APRN) Past Surgical History: Other Additional Past Surgical Histo: Traumatic finger amputation L HAND, lipoma removal (LASHA AVILA APRN) Alcohol Use: None Drug Use: None (LASHA AVILA APRN) Attending Signature I have participated in the care of this patient and I have reviewed and agree with all pertinent clinical information above including history, exam, and recommendations. (JOSÉ MIGUEL GARG MD) Adult General Chief Complaint Chief Complaint: ABDOMINAL PAIN HPI HPI Patient is a 58 year old male who presents with vomited 6-7 times today that started this morning. Patient states he has bilateral side of his abdomen pain with movement and started after he was vomiting. No recent antibiotic use. Patient denies dizziness, syncope, headache, fever, diarrhea, blood in his stool or vomit, chest pain, shortness of air, numbness or tingling. (LASHA AVILA APRN) Review of Systems Review of Systems GI: abdominal pain, nausea, vomiting, denies bloody stools or diarrhea [] All other systems were reviewed and found to be within normal limits, except as documented in this note. (LASHA AVILA APRN) Current Medications Current Medications Current Medications Medications (Trade) Dose Ordered Sig/Michael Start Time Stop Time Status Last Admin Dose Admin Famotidine (Pepcid Vial) 20 mg 1X ONCE 05/01/19 18:30 05/01/19 18:31 DC 05/01/19 18:29 20 MG Info (CONTRAST GIVEN -- Rx MONITORING) 1 each PRN DAILY PRN 05/01/19 21:00 05/01/19 23:37 DC Iohexol (Omnipaque 300 Mg/ml) 100 ml 1X ONCE 05/01/19 21:30 05/01/19 21:31 DC Ondansetron HCl (Zofran) 4 mg 1X ONCE 05/01/19 18:30 05/01/19 18:31 DC 05/01/19 18:28 4 MG Sodium Chloride 1,000 ml @ 1,000 mls/hr 1X ONCE 05/01/19 18:30 05/01/19 19:29 DC 05/01/19 18:28 1,000 MLS/HR (JOSÉ MIGUEL GARG MD) Allergies Allergies Allergies Coded Allergies Type Severity Reaction Last Updated Verified codeine Allergy Severe STOP BREATHING 09/04/15 Yes (JOSÉ MIGUEL GARG MD) Physical Exam Physical Exam Constitutional: Well developed, well nourished, no acute distress, non-toxic appearance. [] HENT: Normocephalic, atraumatic, bilateral external ears normal, oropharynx moist, no oral exudates, nose normal. [] Eyes: PERRLA, EOMI, conjunctiva normal, no discharge. [] Neck: Normal range of motion, no tenderness, supple, no stridor. [] Cardiovascular:Heart rate regular rhythm, no murmur [] Lungs & Thorax: Bilateral breath sounds clear to auscultation [] Abdomen: Bowel sounds normal, soft, generalized soreness tenderness, no masses, no pulsatile masses. [] Skin: Warm, dry, no erythema, no rash. [] Back: No tenderness, no CVA tenderness. [] Extremities: No tenderness, no cyanosis, no clubbing, ROM intact, no edema. [] Neurologic: Alert and oriented X 3, normal motor function, normal sensory function, no focal deficits noted. [] Psychologic: Affect normal, judgement normal, mood normal. [] (LASHA AVILA APRN) Current Patient Data Vital Signs Vital Signs Date Time Temp Pulse Resp B/P (MAP) Pulse Ox O2 Delivery O2 Flow Rate FiO2 05/01/19 23:22 80 127/76 (93) 95 Room Air 05/01/19 18:30 25 05/01/19 17:40 98.0 98.0 (JOSÉ MIGUEL GARG MD) Lab Values Laboratory Tests Test 05/01/19 17:52 05/01/19 18:18 05/01/19 18:19 Urine Collection Type Unknown Urine Color Yellow Urine Clarity Clear Urine pH 5.0 Urine Specific [place] 1.025 Urine Protein Negative mg/dL (NEG-TRACE) Urine Glucose (UA) Negative mg/dL (NEG) Urine Ketones (Stick) Negative mg/dL (NEG) Urine Blood Negative (NEG) Urine Nitrite Negative (NEG) Urine Bilirubin Negative (NEG) Urine Urobilinogen Dipstick 0.2 mg/dL (0.2 mg/dL) Urine Leukocyte Esterase Small (NEG) Urine RBC 0 /HPF (0-2) Urine WBC 1-4 /HPF (0-4) Urine Bacteria 0 /HPF (0-FEW) Urine Mucus Mod /LPF Urine Opiates Screen Neg (NEG) Urine Methadone Screen Neg (NEG) Urine Barbiturates Neg (NEG) Urine Phencyclidine Screen Neg (NEG) Urine Amphetamine/Methamphetamine Neg (NEG) Urine Benzodiazepines Screen Neg (NEG) Urine Cocaine Screen Neg (NEG) Urine Cannabinoids Screen Neg (NEG) Urine Ethyl Alcohol Neg (NEG) White Blood Count 16.3 x10^3/uL (4.0-11.0) H Red Blood Count 5.00 x10^6/uL (4.30-5.70) Hemoglobin 15.3 g/dL (13.0-17.5) Hematocrit 45.8 % (39.0-53.0) Mean Corpuscular Volume 92 fL (79-100) Mean Corpuscular Hemoglobin 31 pg (25-35) Mean Corpuscular Hemoglobin Concent 33 g/dL (31-37) Red Cell Distribution Width 13.2 % (11.5-14.5) Platelet Count 211 x10^3/uL (140-400) Neutrophils (%) (Auto) 92 % (31-73) H Lymphocytes (%) (Auto) 3 % (24-48) L Monocytes (%) (Auto) 5 % (0-9) Eosinophils (%) (Auto) 0 % (0-3) Basophils (%) (Auto) 0 % (0-3) Neutrophils # (Auto) 14.9 x10^3/uL (1.8-7.7) H Lymphocytes # (Auto) 0.5 x10^3/uL (1.0-4.8) L Monocytes # (Auto) 0.7 x10^3/uL (0.0-1.1) Eosinophils # (Auto) 0.0 x10^3/uL (0.0-0.7) Basophils # (Auto) 0.0 x10^3/uL (0.0-0.2) Segmented Neutrophils % 86 % (35-66) H Band Neutrophils % 5 % (0-9) Lymphocytes % 2 % (24-48) L Monocytes % 6 % (0-10) Eosinophils % 1 % (0-5) Platelet Estimate Adequate (ADEQUATE) Prothrombin Time 13.4 SEC (11.7-14.0) Prothrombin Time INR 1.1 (0.8-1.1) Sodium Level 142 mmol/L (136-145) Potassium Level 4.0 mmol/L (3.5-5.1) Chloride Level 105 mmol/L (98-107) Carbon Dioxide Level 26 mmol/L (21-32) Anion Gap 11 (6-14) Blood Urea Nitrogen 16 mg/dL (8-26) Creatinine 1.1 mg/dL (0.7-1.3) Estimated GFR (Cockcroft-Gault) 68.8 BUN/Creatinine Ratio 15 (6-20) Glucose Level 104 mg/dL (70-99) H Calcium Level 8.8 mg/dL (8.5-10.1) Total Bilirubin 0.6 mg/dL (0.2-1.0) Aspartate Amino Transferase (AST) 20 U/L (15-37) Alanine Aminotransferase (ALT) 31 U/L (16-63) Alkaline Phosphatase 144 U/L (46-116) H Troponin I Quantitative < 0.017 ng/mL (0.000-0.055) Total Protein 7.4 g/dL (6.4-8.2) Albumin 3.9 g/dL (3.4-5.0) Albumin/Globulin Ratio 1.1 (1.0-1.7) Lipase 51 U/L (73-393) L Influenza Type A Antigen Negative (NEGATIVE) Influenza Type B Antigen Negative (NEGATIVE) Laboratory Tests 05/01/19 18:18 Laboratory Tests 05/01/19 18:18 (JOSÉ MIGUEL GARG MD) EKG EKG sinus rhythm and no stemi[] Interpretation Time: [address] garg (LASHA AVILA APRN) Radiology/Procedures Radiology/Procedures [] (LASHA AVILA APRN) Impressions: [facility] [address] [place] [address] IMAGING REPORT Signed PATIENT: PIYUSH BRYAN ACCOUNT: [id number] : 1960 LOCATION: ER AGE: 58 SEX: M EXAM STATUS: REG ER ORD. PHYSICIAN: LASHA AVILA APRN REASON: vomiting PROCEDURE: CT ABD PELV W/ IV CONTRST ONLY CT SCAN OF THE ABDOMEN AND PELVIS WITH IV CONTRAST. History: Vomiting Comparison:None. Procedure: Contiguous axial images of the abdomen and pelvis were performed after the administration of 75 cc of Isovue 370 IV contrast. Oral contrast: No. Findings: Liver: Unremarkable Spleen: Unremarkable Pancreas: Unremarkable Adrenal Glands: Unremarkable Kidneys: Unremarkable There is no mass or lymphadenopathy. There is no free air. There is no free fluid. The urinary bladder appears normal. The appendix is not well seen. The gallbladder appears normal. Impression: No acute findings. PQRS Compliance Statement: One or more of the following individualized dose reduction techniques were utilized for this examination: 1. Automated exposure control 2. Adjustment of the mA and/or kV according to patient size 3. Use of iterative reconstruction technique Electronically signed by: Stevo Yoder III, MD (05/01/2019 10:35 PM) [facility] DICTATED and SIGNED BY: STEVO YODER III, MD DATE: 05/01/192234 (LASHA AVILA APRN) Course & Med Decision Making Course & Med Decision Making Generalized abdominal soreness with palpation. Alert and oriented. Ambulatory with a steady gait. Skin pink warm and dry. Patients is here with the same thing. Patient states he did not eat anything out of the ordinary last night. Lungs are clear.patient eloped. Vital signs within normal limits. Mucous membranes are moist. Speaks in full clear sentences. PERRLA. No extremity edema. (LASHA AVILA APRN) Dragon Disclaimer Dragon Disclaimer This electronic medical record was generated, in whole or in part, using a voice recognition dictation system. (LASHA AVILA APRN) Departure Departure Impression: Primary Impression: Nausea & vomiting Disposition: 01 HOME, SELF-CARE Condition: STABLE Referrals: NO PCP (PCP) Patient Instructions: Nausea and Vomiting Additional Instructions: Follow-up with primary care provider. Drink plenty of fluids. Take medications as prescribed. Scripts Ondansetron (ONDANSETRON ODT) 4 Mg Tab.rapdis 1 TAB PO PRN Q6-8HRS, #16 TAB Prov: LASHA AVILA APRN 05/01/19 Problem Qualifiers Primary Impression: Nausea & vomiting Vomiting type: unspecified Vomiting Intractability: non-intractable Qualified Codes: R11.2 - Nausea with vomiting, unspecified LASHA AVILA APRN May 01, 2019 18:20 JOSÉ MIGUEL GARG MD May 02, 2019 07:32
[2019-05-01 18:30] LABS: BASO % 0 % (0-3); EOS % 0 % (0-3); HEMATOCRIT 45.8 % (39.0-53.0); HEMOGLOBIN 15.3 g/dL (13.0-17.5); LYMPH # 0.5 x10^3/uL (1.0-4.8); LYMPH % 3 % (24-48); MEAN CORPUSCULAR HEMOGLOBIN 31 pg (25-35); MEAN CORPUSCULAR HGB CONC 33 g/dL (31-37); MEAN CORPUSCULAR VOLUME 92 fL (79-100); MONO # 0.7 x10^3/uL (0.0-1.1); MONO % 5 % (0-9); NEUT # 14.9 x10^3/uL (1.8-7.7); NEUT % 92 % (31-73); PLATELET COUNT 211 x10^3/uL (140-400); RED CELL DISTRIBUTION WIDTH 13.2 % (11.5-14.5); WHITE BLOOD COUNT 16.3 x10^3/uL (4.0-11.0)
[2019-05-01] MEDS ORDERED: IV NORMAL SALINE 1000ML BAG 1,000 ML IV ONE (18:30)
[2019-05-01] MEDS ORDERED: ONDANSETRON PF 4 MG/2 ML VIAL. IV ONE (18:30)
[2019-05-01] MEDS ORDERED: FAMOTIDINE 20 MG/2 ML VIAL IVP ONE (18:30)
[2019-05-01 18:38] LABS: CALCIUM 8.8 mg/dL (8.5-10.1); CREATININE 1.1 mg/dL (0.7-1.3); GFR 68.8
[2019-05-01 18:39] LABS: PROTHROMBIN TIME PATIENT 13.4 SEC (11.7-14.0)
[2019-05-01 18:45] LABS: ALBUMIN 3.9 g/dL (3.4-5.0); ALBUMIN/GLOBULIN RATIO 1.1 (1.0-1.7); TOTAL BILIRUBIN 0.6 mg/dL (0.2-1.0); TOTAL PROTEIN 7.4 g/dL (6.4-8.2)
[2019-05-01 18:56] LABS: INFLUENZA A PATIENT NEGATIVE (NEGATIVE); INFLUENZA B PATIENT NEGATIVE (NEGATIVE)
[2019-05-01 19:37] LABS: % BANDS 5 % (0-9); % EOS 1 % (0-5); % LYMPHS 2 % (24-48); % MONOS 6 % (0-10); % SEGS 86 % (35-66); PLT ESTIMATE ADEQUATE (ADEQUATE)
[2019-05-01] MEDS ORDERED: CONTRAST GIVEN. MC PRN (21:00)
[2019-05-01] MEDS ORDERED: IOHEXOL 300 MG/ML 100ML VIAL. IV ONE (21:30)
--- NOTE | 2019-05-01 22:38 | RAD ---
CT SCAN OF THE ABDOMEN AND PELVIS WITH IV CONTRAST. History: Vomiting Comparison:None. Procedure: Contiguous axial images of the abdomen and pelvis were performed after the administration of 75 cc of Isovue 370 IV contrast. Oral contrast: No. Findings: Liver: Unremarkable Spleen: Unremarkable Pancreas: Unremarkable Adrenal Glands: Unremarkable Kidneys: Unremarkable There is no mass or lymphadenopathy. There is no free air. There is no free fluid. The urinary bladder appears normal. The appendix is not well seen. The gallbladder appears normal. Impression: No acute findings. PQRS Compliance Statement: One or more of the following individualized dose reduction techniques were utilized for this examination: 1. Automated exposure control 2. Adjustment of the mA and/or kV according to patient size 3. Use of iterative reconstruction technique Electronically signed by: Cole Grimm III, MD (05/01/2019 10:35 PM) [facility]
[2019-05-01] MEDS ORDERED: ONDA4TAB12 PO (22:53)
[2019-05-01 23:22] VITALS: BP 127/76
--- NOTE | 2019-05-02 06:37 | EKG ---
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
== END 2019-05-01 23:37 | disposition home or self-care (01) ==
LOC: ER 17:22
DX: R11.2 Nausea with vomiting, unspecified (principal); R10.84 Generalized abdominal pain; Z98.890 Other specified postprocedural states; Z88.5 Allergy status to narcotic agent
CPT/HCPCS: 36415; 74177; 80053; 80307; 81001; 83690; 84484; 85007; 85025; 85610; 87086; 87804; 93005; 96361; 96374; 96375; 99285; J2405; J3490; J7030; 99284

== ENCOUNTER 2019-09-26 11:23 | Inpatient (IN) | payer SELFPAY ==
[~2019-09-26] VITALS: Ht 170.2 cm; Wt 78.1 kg
[~2019-09-26 11:23] MED LIST changes: +ONDA4TAB12 PO
--- NOTE | 2019-09-26 11:59 | EKG ---
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
--- NOTE | 2019-09-26 12:00 | PHYS DOC ---
Past Medical History Past Medical History: Other Additional Past Medical Histor: Hep C, HYPOGLYCEMIC Past Surgical History: Other Additional Past Surgical Histo: Traumatic finger amputation L HAND, lipoma removal Smoking Status: Never Smoker Alcohol Use: None Drug Use: None General Adult EDM: Chief Complaint: NEURO SYMPTOMS/DEFICITS HPI: HPI: Patient is a 59 year old male presenting to the ED with a chief complaint of tingling and weakness to the left upper and left lower extremity. Patient also complains of tingling to the left side of his head. Patient states that the symptoms started at 9 AM this morning. Patient states that currently he is asymptomatic. Patient also states that he has a friend who tested positive for COVID.. Patient denies fever, chills, nausea, vomiting, chest pain, shortness of breath. Patient states that he does not take any blood thinners. Patient states that he is a former smoker and has hx of DM. Patient denies trouble talking, trouble walking, trouble swallowing. Review of Systems: Review of Systems: Constitutional: Denies fever or chills. [] Eyes: Denies change in visual acuity. [] HENT: Denies nasal congestion or sore throat. [] Respiratory: Denies cough or shortness of breath. [] Cardiovascular: Denies chest pain or edema. [] GI: Denies abdominal pain, nausea, vomiting, bloody stools or diarrhea. [] : Denies dysuria. [] Musculoskeletal: Denies back pain or joint pain. [] Neurologic: Complains of tingling in his left upper and left lower extremities. Endocrine: Denies polyuria or polydipsia. [] Heart Score: Risk Factors: Risk Factors: DM, Current or recent (<one month) smoker, HTN, HLP, family history of CAD, obesity. Risk Scores: Score 0 - 3: 2.5% MACE over next 6 weeks - Discharge Home Score 4 - 6: 20.3% MACE over next 6 weeks - Admit for Clinical Observation Score 7 - 10: 72.7% MACE over next 6 weeks - Early Invasive Strategies Allergies: Allergies: Allergies Coded Allergies Type Severity Reaction Last Updated Verified codeine Allergy Severe STOP BREATHING 09/04/15 Yes Physical Exam: PE: Constitutional: Well developed, well nourished, no acute distress, non-toxic appearance. [] HENT: Normocephalic, atraumatic Eyes: PERRLA, EOMI Neck: Normal range of motion, no tenderness, supple, no stridor. [] Cardiovascular:Heart rate regular rhythm, no murmur [] Lungs & Thorax: Bilateral breath sounds clear to auscultation [] Abdomen: Bowel sounds normal, soft, no tenderness Extremities: No tenderness, no cyanosis, no clubbing, ROM intact, no edema. [] Neurologic: Alert and oriented X 3, mild weakness in LLE Current Patient Data: Labs: Laboratory Tests Test 09/26/19 11:34 Glucose (Fingerstick) 96 mg/dL (70-99) EKG: EKG: EKG interpretation: 11: 48 on 09/26/2019 HR: 65 Sinus rhythm Regular intervals Normal axis Nonspecific ST changes Radiology/Procedures: Radiology/Procedures: [] Impression: CT head shows no acute process. Chest x-ray shows no acute disease. Course & Med Decision Making: Course & Med Decision Making Pertinent Labs and Imaging studies reviewed. (See chart for details) Ordered CT head, chest x-ray, EKG, labs, cardiac technician, saline lock EKG does not show any acute changes. Labs are within normal limits. Patient's blood glucose was within normal limits. Troponin is negative. CT head shows no acute disease. Chest x-ray shows no acute disease. Patient states that the tingling and weakness in his left upper extremity has resolved. Patient still complains of mild weakness in his left lower extremity. Patient has been tested for COVID as he states that he has a friend that is positive for COVID. Patient does have a history of diabetes and is a former smoker and so I think that patient should be admitted for further testing and treatment for possible TIA. I discussed case with Dr. Edward who is the on-call hospitalist physician who accepts admission. I discussed results and plan of care with patient. The hospitalist Dr. Edward came and told me that the patient does not want to be admitted to the hospital as he had to stay in the COVID floor until the COVID test comes back negative. Patient wants to leave AMA. Patient understands risks and dangers of leaving AMA. These risks include sudden , worsening of condition and loss of current lifestyle. Patient blood pressure is also high during discharge but patient does not want any medication. Have told him that we can give him blood pressure medication to bring down his medication and monitor him. Patient states that he does not want this and he wants to go home. Gordonon Disclaimer: Shilpa Disclaimer: This electronic medical record was generated, in whole or in part, using a voice recognition dictation system. Departure Departure Impression: Primary Impression: TIA (transient ischemic attack) Disposition: ADMITTED INPATIENT Admitting Physician: RIAZ Condition: STABLE Referrals: NO PCP (PCP) MAREN RILEY DO September 26, 2019 12:00
--- NOTE | 2019-09-26 12:09 | RAD ---
AP chest. HISTORY: Pain AP view was taken of the chest. Lungs are clear. Heart is normal in size. There is no effusion. IMPRESSION: 1. No acute chest disease. Electronically signed by: Nilson Tadeo MD (09/26/2019 12:06 PM) [id number]
--- NOTE | 2019-09-26 12:16 | RAD ---
EXAM: CT Head without IV contrast CLINICAL HISTORY: paresthesia, left-sided weakness COMPARISON: None. TECHNIQUE: Routine CT of the head without contrast. Soft tissues and bone windows were reviewed. PQRS compliance statement - One or more of the following individualized dose reduction techniques were utilized for this study: 1. Automated exposure control 2. Adjustment of the mA and/or kV according to patient size 3. Use of iterative reconstruction technique FINDINGS: There is no evidence of hemorrhage, mass or extra-axial fluid collection. Rios-white differentiation is maintained with no evidence of edema. There is no mass effect or shift of the intracranial structures. The ventricles, basilar cisterns and cortical sulci are normal in size and configuration for the patients stated age. The cerebellum and brainstem are unremarkable. The calvarium demonstrates no evidence of fracture or focal lesion. Mastoid air cells are clear. Nodular thickening of the maxillary sinuses, likely sinusitis. No fluid levels are seen. The visualized portions of the orbits are normal. IMPRESSION: No evidence for acute intracranial hemorrhage. Mild maxillary sinus disease without fluid levels. Findings discussed with MAREN RILEY at 09/26/2019 12:13 PM. FOR INTERNAL CODING PURPOSES RESULT CODE: (C) Electronically signed by: Ar Condon MD (09/26/2019 12:14 PM) [id number]
[2019-09-26 12:18] LABS: BASO # 0.1 x10^3/uL (0.0-0.2); BASO % 1 % (0-3); EOS # 0.1 x10^3/uL (0.0-0.7); EOS % 1 % (0-3); HEMATOCRIT 47.3 % (39.0-53.0); HEMOGLOBIN 16.1 g/dL (13.0-17.5); LYMPH % 26 % (24-48); MEAN CORPUSCULAR HEMOGLOBIN 31 pg (25-35); MEAN CORPUSCULAR HGB CONC 34 g/dL (31-37); MEAN CORPUSCULAR VOLUME 91 fL (79-100); MONO # 0.9 x10^3/uL (0.0-1.1); MONO % 12 % (0-9); NEUT # 4.6 x10^3/uL (1.8-7.7); NEUT % 60 % (31-73); PLATELET COUNT 230 x10^3/uL (140-400); RED BLOOD COUNT 5.19 x10^6/uL (4.30-5.70); RED CELL DISTRIBUTION WIDTH 13.3 % (11.5-14.5); WHITE BLOOD COUNT 7.7 x10^3/uL (4.0-11.0)
[2019-09-26 13:43] LABS: CALCIUM 8.8 mg/dL (8.5-10.1); CREATININE 1.2 mg/dL (0.7-1.3); POTASSIUM 4.2 mmol/L (3.5-5.1)
[2019-09-26 13:49] LABS: ALBUMIN 3.7 g/dL (3.4-5.0); TOTAL BILIRUBIN 0.5 mg/dL (0.2-1.0); TOTAL PROTEIN 7.3 g/dL (6.4-8.2)
[2019-09-26 14:41] LABS: BARBITURATES NEG (NEG); BENZODIAZEPINES NEG (NEG); CANNABINOIDS NEG (NEG); COCAINE NEG (NEG); METHADONE NEG (NEG); OPIATES NEG (NEG); PHENCYCLIDINE NEG (NEG)
[2019-09-26 14:53] LABS: AMPHETAMINE/METHAMPHETAMINE NEG (NEG)
--- NOTE | 2019-09-26 15:27 | PDOC1 ---
History and Physical Date of Admission Date of Admission DATE: 09/26/19 TIME: 15:25 Identification/Chief Complaint Chief Complaint Left sided weakness Source Source: Patient History of Present Illness History of Present Illness Mr Garcia is a 59 yo M w/ PMHx ex-smoker, DM2, hep C in SVR who presents to ED c/o sudden onset tingling and weakness to the left upper and left lower extremity. Patient also complains of tingling to the left side of his head. Patient states that the symptoms started at 9 AM 09/26/2019 in morning. Patient states that currently he is asymptomatic. Patient also states that he has a friend who tested positive for COVID and was tested for COVID in ED. Patient denies fever, chills, nausea, vomiting, chest pain, shortness of breath. Patient states that he does not take any blood thinners. Patient denies trouble talking, trouble walking, trouble swallowing. Patient still complains of mild weakness in his left lower extremity. EKG was Sinus rhythm with Regular intervals and Normal axis but Nonspecific ST changes CT head shows no acute process. Chest x-ray shows no acute disease. Labs are within normal limits. Patient's blood glucose was within normal limits. Troponin is negative. He is advised to be admitted for further testing and treatment for possible TIA. When I instructed patient he would be admitted to the [place] [id number] observation unit he then panicked and said he did not want to be near anyone who was coronavirus positive and he was going to leave the hospital AGAINST MEDICAL ADVICE. Past Medical History Cardiovascular: No pertinent hx Pulmonary: No pertinent hx GI: GERD, Other Infectious disease: Other Past Surgical History Past Surgical History: Other Family History Family History: Coronary Artery Disease Social History Smoke: Quit ALCOHOL: none Drugs: None Current Problem List Problem List Problems Medical Problems: (1) TIA (transient ischemic attack) Status: Acute Current Medications Current Medications Active Scripts Active Ondansetron Odt (Ondansetron) 4 Mg Tab.rapdis 1 Tab PO PRN Q6-8HRS Bactrim Ds Tablet (Sulfamethoxazole/Trimethoprim) 1 Each Tablet 1 Tab PO BID Cyclobenzaprine Hcl 10 Mg Tablet 1 Tab PO TID PRN Catharpin 5-325 Tablet (Acetaminophen/Hydrocodone Bitart) 1 Each Tablet 1 Tab PO PRN Q6HRS PRN Bacitracin-Polymyxin Eye Oint (Bacitracin/Polymyxin B Sulfate) 3.5 Gm Oint...g. 3.5 Gm OD QID 7 Days Pantoprazole Sodium (Pantoprazole Sodium) 40 Mg Tablet.dr 40 Mg PO DAILYAC Ibuprofen 600 Mg Tablet 600 Mg PO PRN Q6HRS PRN Allergies Allergies: Coded Allergies: codeine (Verified Allergy, Severe, STOP BREATHING, 09/04/15) ROS General: YES: Fatigue, Malaise; No: Chills, Night Sweats, Appetite, Other PSYCHOLOGICAL ROS: No: Anxiety, Behavioral Disorder, Concentration difficultie, Decreased libido, Depression, Disorientation, Hallucinations, Hostility, Irritablity, Memory difficulties, Mood Swings, Obsessive thoughts, Physical abuse, Sexual abuse, Sleep disturbances, Suicidal ideation, Other Eyes: No Blurry vision, No Decreased vision, No Double vision, No Dry eyes, No Excessive tearing, No Eye Pain, No Itchy Eyes, No Loss of vision, No Photophobia, No Scotomata, No Uses contacts, No Uses glasses, No Other HEENT: No: Heacaches, Visual Changes, Hearing change, Nasal congestion, Nasal discharge, Oral lesions, Sinus pain, Sore Throat, Epistaxis, Sneezing, Snoring, Tinnitus, Vertigo, Vocal changes, Other ALLERGY AND IMMUNOLOGY: No: Hives, Insect Bite Sensitivity, Itchy/Watery Eyes, Nasal Congestion, Post Nasal Drip, Seasonal Allergies, Other Hematological and Lymphatic: No: Bleeding Problems, Blood Clots, Blood Transfusions, Brusing, Night Sweats, Pallor, Swollen Lymph Nodes, Other ENDOCRINE: No: Breast Changes, Galactorrhea, Hair Pattern Changes, Hot Flashes, Malaise/lethargy, Mood Swings, Palpitations, Polydipsia/polyuria, Skin Changes, Temperature Intolerance, Unexpected Weight Changes, Other Breast: No New/Changing Breast Lumps, No Nipple changes, No Nipple discharge, No Other Respiratory: No: Cough, Hemoptysis, Orthopnea, Pleuritic Pain, Shortness of breath, SOB with excertion, Sputum Changes, Stridor, Tachypnea, Wheezing, Other Cardiovascular: No Chest Pain, No Palpitations, No Orthopnea, No Paroxysmal Noc. Dyspnea, No Edema, No Lt Headedness, No Other Gastrointestinal: No Nausea, No Vomiting, No Abdominal Pain, No Diarrhea, No Constipation, No Melena, No Hematochezia, No Other Genitourinary: No Dysuria, No Frequency, No Incontinence, No Hematuria, No Retention, No Discharge, No Urgency, No Pain, No Flank Pain, No Other, No , No , No , No , No , No , No Musculoskeletal: Yes Gait Disturbance, Yes Muscular Weakness; No Joint Pain, No Joint Stiffness, No Joint Swelling, No Muscle Pain, No Pain In:, No Swelling In:, No Other Neurological: Yes Gait Disturbance; No Behavorial Changes, No Bowel/Bladder ControlChng, No Confusion, No Dizziness, No Headaches, No Impaired Coord/balance, No Memory Loss, No Numbness/Tingling, No Seizures, No Speech Problems, No Tremors, No Visual Changes, No Weakness, No Other Skin: No Dry Skin, No Eczema, No Hair Changes, No Lumps, No Mole Changes, No Mottling, No Nail Changes, No Pruritus, No Rash, No Skin Lesion Changes, No Other, No Acne Physical Exam General: Alert, Oriented X3, Cooperative, No acute distress HEENT: Atraumatic, PERRLA, EOMI, Mucous membr. moist/pink Lungs: Clear to auscultation, Normal air movement Heart: S1S2, RRR, no thrills, no rubs, no gallops, no murmurs Abdomen: Normal bowel sounds, Soft, No tenderness, No hepatosplenomegaly, No masses Rectal Exam: not examined Extremities: No clubbing, No cyanosis, No edema, Normal pulses, No tenderness/swelling Skin: No rashes, No breakdown, No significant lesion Neuro: Normal speech, Strength at 5/5 X4 ext (Left leg 4/5, no foot drop), Normal tone, Sensation intact, Cranial nerves 3-12 NL, Reflexes 2+ Psych/Mental Status: Mental status NL, Mood NL Vitals Vitals Vital Signs Date Time Temp Pulse Resp B/P (MAP) Pulse Ox O2 Delivery O2 Flow Rate FiO2 09/26/19 14:07 60 168/93 (118) 98 Room Air 09/26/19 12:22 19 09/26/19 11:32 97.5 97.5 Labs Labs Laboratory Tests Test 09/26/19 11:34 09/26/19 11:53 09/26/19 13:17 09/26/19 13:30 Glucose (Fingerstick) 96 mg/dL (70-99) White Blood Count 7.7 x10^3/uL (4.0-11.0) Red Blood Count 5.19 x10^6/uL (4.30-5.70) Hemoglobin 16.1 g/dL (13.0-17.5) Hematocrit 47.3 % (39.0-53.0) Mean Corpuscular Volume 91 fL (79-100) Mean Corpuscular Hemoglobin 31 pg (25-35) Mean Corpuscular Hemoglobin Concent 34 g/dL (31-37) Red Cell Distribution Width 13.3 % (11.5-14.5) Platelet Count 230 x10^3/uL (140-400) Neutrophils (%) (Auto) 60 % (31-73) Lymphocytes (%) (Auto) 26 % (24-48) Monocytes (%) (Auto) 12 % (0-9) Eosinophils (%) (Auto) 1 % (0-3) Basophils (%) (Auto) 1 % (0-3) Neutrophils # (Auto) 4.6 x10^3/uL (1.8-7.7) Lymphocytes # (Auto) 2.0 x10^3/uL (1.0-4.8) Monocytes # (Auto) 0.9 x10^3/uL (0.0-1.1) Eosinophils # (Auto) 0.1 x10^3/uL (0.0-0.7) Basophils # (Auto) 0.1 x10^3/uL (0.0-0.2) Prothrombin Time 13.0 SEC (11.7-14.0) Prothromb Time International Ratio 1.0 (0.8-1.1) Sodium Level 140 mmol/L (136-145) Potassium Level 4.2 mmol/L (3.5-5.1) Chloride Level 105 mmol/L (98-107) Carbon Dioxide Level 28 mmol/L (21-32) Anion Gap 7 (6-14) Blood Urea Nitrogen 15 mg/dL (8-26) Creatinine 1.2 mg/dL (0.7-1.3) Estimated GFR (Cockcroft-Gault) 62.0 BUN/Creatinine Ratio 13 (6-20) Glucose Level 98 mg/dL (70-99) Calcium Level 8.8 mg/dL (8.5-10.1) Total Bilirubin 0.5 mg/dL (0.2-1.0) Aspartate Amino Transf (AST/SGOT) 22 U/L (15-37) Alanine Aminotransferase (ALT/SGPT) 39 U/L (16-63) Alkaline Phosphatase 140 U/L (46-116) Troponin I Quantitative < 0.017 ng/mL (0.000-0.055) Total Protein 7.3 g/dL (6.4-8.2) Albumin 3.7 g/dL (3.4-5.0) Albumin/Globulin Ratio 1.0 (1.0-1.7) Urine Opiates Screen Neg (NEG) Urine Methadone Screen Neg (NEG) Urine Barbiturates Neg (NEG) Urine Phencyclidine Screen Neg (NEG) Urine Amphetamine/Methamphetamine Neg (NEG) Urine Benzodiazepines Screen Neg (NEG) Urine Cocaine Screen Neg (NEG) Urine Cannabinoids Screen Neg (NEG) Urine Ethyl Alcohol Neg (NEG) Laboratory Tests Test 09/26/19 11:34 09/26/19 11:53 09/26/19 13:17 09/26/19 13:30 Glucose (Fingerstick) 96 mg/dL (70-99) White Blood Count 7.7 x10^3/uL (4.0-11.0) Red Blood Count 5.19 x10^6/uL (4.30-5.70) Hemoglobin 16.1 g/dL (13.0-17.5) Hematocrit 47.3 % (39.0-53.0) Mean Corpuscular Volume 91 fL (79-100) Mean Corpuscular Hemoglobin 31 pg (25-35) Mean Corpuscular Hemoglobin Concent 34 g/dL (31-37) Red Cell Distribution Width 13.3 % (11.5-14.5) Platelet Count 230 x10^3/uL (140-400) Neutrophils (%) (Auto) 60 % (31-73) Lymphocytes (%) (Auto) 26 % (24-48) Monocytes (%) (Auto) 12 % (0-9) Eosinophils (%) (Auto) 1 % (0-3) Basophils (%) (Auto) 1 % (0-3) Neutrophils # (Auto) 4.6 x10^3/uL (1.8-7.7) Lymphocytes # (Auto) 2.0 x10^3/uL (1.0-4.8) Monocytes # (Auto) 0.9 x10^3/uL (0.0-1.1) Eosinophils # (Auto) 0.1 x10^3/uL (0.0-0.7) Basophils # (Auto) 0.1 x10^3/uL (0.0-0.2) Prothrombin Time 13.0 SEC (11.7-14.0) Prothromb Time International Ratio 1.0 (0.8-1.1) Sodium Level 140 mmol/L (136-145) Potassium Level 4.2 mmol/L (3.5-5.1) Chloride Level 105 mmol/L (98-107) Carbon Dioxide Level 28 mmol/L (21-32) Anion Gap 7 (6-14) Blood Urea Nitrogen 15 mg/dL (8-26) Creatinine 1.2 mg/dL (0.7-1.3) Estimated GFR (Cockcroft-Gault) 62.0 BUN/Creatinine Ratio 13 (6-20) Glucose Level 98 mg/dL (70-99) Calcium Level 8.8 mg/dL (8.5-10.1) Total Bilirubin 0.5 mg/dL (0.2-1.0) Aspartate Amino Transf (AST/SGOT) 22 U/L (15-37) Alanine Aminotransferase (ALT/SGPT) 39 U/L (16-63) Alkaline Phosphatase 140 U/L (46-116) Troponin I Quantitative < 0.017 ng/mL (0.000-0.055) Total Protein 7.3 g/dL (6.4-8.2) Albumin 3.7 g/dL (3.4-5.0) Albumin/Globulin Ratio 1.0 (1.0-1.7) Urine Opiates Screen Neg (NEG) Urine Methadone Screen Neg (NEG) Urine Barbiturates Neg (NEG) Urine Phencyclidine Screen Neg (NEG) Urine Amphetamine/Methamphetamine Neg (NEG) Urine Benzodiazepines Screen Neg (NEG) Urine Cocaine Screen Neg (NEG) Urine Cannabinoids Screen Neg (NEG) Urine Ethyl Alcohol Neg (NEG) VTE Prophylaxis Ordered VTE Prophylaxis Devices: No VTE Pharmacological Prophylaxi: Yes Assessment/Plan Assessment/Plan A/P: Left sided weakness - mostly resolved. Advised statin, ASA, CT negative. WIll consult neurology and consider MRI. Telemetry Ex-smoker - stable DM2 - Will place on insulin Hep C in SVR - stable COVID 19 exposure - tested in ED FEN - ADA PPX - lovenox FULL CODE Dispo - after discussion of above patient became very anxious and stated they wanted to leave the hospital AGAINST MEDICAL ADVICE as he did not want to be exposed to coronavirus. COVID-19 CRITERIA: The patient was evaluated during the global COVID-19 pandemic, and that diagnosis was suspected/considered upon their initial presentation. Their evaluation, treatment and testing was consistent with current guidelines for patients who present with complaints or symptoms that may be related to COVID-19. KIRILL ALMONTE MD September 26, 2019 15:27
[2019-09-26 17:45] VITALS: BP 207/88
== END 2019-09-26 17:56 | disposition left against medical advice (07) | DRG 69 ==
LOC: ER 11:23 → ED HOLD 15:53
PROVIDERS: ADMIT Internal Medicine; ATTEND Internal Medicine
DX: G45.9 Transient cerebral ischemic attack, unspecified (principal); B19.20 Unspecified viral hepatitis C without hepatic coma; K21.9 Gastro-esophageal reflux disease without esophagitis; E11.9 Type 2 diabetes mellitus without complications; Z82.49 Family history of ischemic heart disease and other diseases of the circulatory system; Z87.891 Personal history of nicotine dependence; Z89.022 Acquired absence of left finger(s); Z79.899 Other long term (current) drug therapy; Z20.828 Contact with and (suspected) exposure to other viral communicable diseases; Z53.29 Procedure and treatment not carried out because of patient's decision for other reasons
CPT/HCPCS: 36415; 70450; 71045; 80053; 80307; 82962; 84484; 85025; 85610; 93005; 99285; U0003-CS

== ENCOUNTER 2019-11-29 22:10 | Emergency (ER) | payer SELFPAY ==
[~2019-11-29] VITALS: Ht 170.2 cm; Wt 77.3 kg
[2019-11-29] MEDS ORDERED: IV NORMAL SALINE 1000ML BAG 1,000 ML IV ONE (23:00)
[2019-11-29] MEDS ORDERED: MECLIZINE HCL 12.5 MG TABLET. PO ONE (23:00)
--- NOTE | 2019-11-29 23:05 | RAD ---
STUDY: CT head without contrast INDICATION: Dizziness. COMPARISON: 09/26/2019 TECHNIQUE: Axial CT imaging through the head without the use of intravenous contrast. Sagittal and coronal reformats were obtained. One or more of the following individualized dose reduction techniques were utilized for this examination: 1. Automated exposure control 2. Adjustment of the mA and/or kV according to patient size 3. Use of iterative reconstruction technique. FINDINGS: No acute intracranial hemorrhage. Ta-white matter differentiation is maintained. No mass effect, midline shift or hydrocephalus. Carotid siphon atherosclerotic calcifications. Brain parenchymal attenuation is no different from the comparison. Unremarkable orbits and scalp. Intact calvarium. Partially imaged left maxillary sinus retention cyst. IMPRESSION: No acute intracranial abnormality by CT. No change from 09/26/2019. Electronically signed by: SHIV VALENTE MD (11/29/2019 11:03 PM) [id number]
[2019-11-29 23:12] LABS: BASO # 0.1 x10^3/uL (0.0-0.2); BASO % 1 % (0-3); EOS # 0.1 x10^3/uL (0.0-0.7); EOS % 1 % (0-3); HEMATOCRIT 40.9 % (39.0-53.0); LYMPH # 1.2 x10^3/uL (1.0-4.8); LYMPH % 13 % (24-48); MEAN CORPUSCULAR HEMOGLOBIN 31 pg (25-35); MEAN CORPUSCULAR HGB CONC 34 g/dL (31-37); MEAN CORPUSCULAR VOLUME 91 fL (79-100); MONO # 0.7 x10^3/uL (0.0-1.1); MONO % 8 % (0-9); NEUT # 7.2 x10^3/uL (1.8-7.7); NEUT % 78 % (31-73); PLATELET COUNT 211 x10^3/uL (140-400); RED BLOOD COUNT 4.49 x10^6/uL (4.30-5.70); RED CELL DISTRIBUTION WIDTH 13.6 % (11.5-14.5); WHITE BLOOD COUNT 9.2 x10^3/uL (4.0-11.0)
--- NOTE | 2019-11-29 23:12 | PHYS DOC ---
Past Medical History Past Medical History: Hepatitis, Other Additional Past Medical Histor: Hep C, HYPOGLYCEMIC Past Surgical History: Other Additional Past Surgical Histo: Traumatic finger amputation L HAND, lipoma removal Smoking Status: Former Smoker Alcohol Use: None Drug Use: None General Adult EDM: Chief Complaint: DIZZY/LIGHT HEADED HPI: HPI: Patient is a 59 year old male presents via EMS with report of dizziness that started today. Denies associated nausea or vomiting. Denies known trauma. Patient reports he has "[place] ". Patient denies room spinning sensation however feels like the "floor is uneven ". Reports was helping a neighbor with some projects today. Patient reports he does not drink enough water. Reports he only drinks soda pop. Denies fever or chills. Denies cough. Denies chest pain. Review of Systems: Review of Systems: Constitutional: Denies fever or chills Eyes: Denies redness or eye pain HENT: Denies nasal congestion or sore throat Respiratory: Denies cough or shortness of breath Cardiovascular: Denies chest pain or palpitations GI: Denies abdominal pain, nausea, or vomiting : Denies dysuria or hematuria Musculoskeletal: Denies back pain or joint pain Integument: Denies rash or skin lesions Neurologic: Denies headache, focal weakness or sensory changes; reports dizziness Complete systems were reviewed and found to be within normal limits, except as documented in this note. Current Medications: Current Medications Medications (Trade) Dose Ordered Sig/Michael Start Time Stop Time Status Last Admin Dose Admin Meclizine HCl (Antivert) 25 mg 1X ONCE 11/29/19 23:00 11/29/19 23:01 DC 11/29/19 23:06 25 MG Sodium Chloride 1,000 ml @ 1,000 mls/hr 1X ONCE 11/29/19 23:00 11/29/19 23:59 11/29/19 23:07 1,000 MLS/HR Allergies: Allergies: Allergies Coded Allergies Type Severity Reaction Last Updated Verified codeine Allergy Severe STOP BREATHING 09/04/15 Yes Physical Exam: PE: Constitutional: Well developed, well nourished, no acute distress, non-toxic appearance HENT: Normocephalic, atraumatic, oropharynx tacky Eyes: PERRL, EOMI, conjunctiva injected bilaterally, no discharge, no nystagmus Neck: Normal range of motion, supple Lungs & Thorax: No respiratory distress, equal chest rise and fall Abdomen: Soft, no tenderness Skin: Warm, dry, no erythema, no rash Extremities: No tenderness, ROM intact, no edema Neurologic: Alert and oriented X 3, normal motor function, normal sensory function, no focal deficits noted Psychologic: Affect normal, judgment normal EKG: EKG: @2222 NSR @85bpm, QRS 92ms, QT/QTc 390/470ms Radiology/Procedures: Radiology/Procedures: PROCEDURE: CT HEAD WO CONTRAST STUDY: CT head without contrast INDICATION: Dizziness. COMPARISON: 09/26/2019 TECHNIQUE: Axial CT imaging through the head without the use of intravenous contrast. Sagittal and coronal reformats were obtained. One or more of the following individualized dose reduction techniques were utilized for this examination: 1. Automated exposure control 2. Adjustment of the mA and/or kV according to patient size 3. Use of iterative reconstruction technique. FINDINGS: No acute intracranial hemorrhage. Ta-white matter differentiation is maintained. No mass effect, midline shift or hydrocephalus. Carotid siphon atherosclerotic calcifications. Brain parenchymal attenuation is no different from the comparison. Unremarkable orbits and scalp. Intact calvarium. Partially imaged left maxillary sinus retention cyst. IMPRESSION: No acute intracranial abnormality by CT. No change from 09/26/2019. Electronically signed by: SHIV VALENTE MD (11/29/2019 11:03 PM) [id number] Course & Med Decision Making: Course & Med Decision Making Pertinent Labs and Imaging studies reviewed. (See chart for details) Patient presents with report of dizziness and sensation the "floor is uneven ". No nystagmus appreciated. Patient neurologically intact. NIHSS 0. EKG stable. Labs obtained and posted to chart. IV fluid hydration provided. Orthostatic vital signs stable. CT head without acute process. UDS positive for THC. Patient stable for discharge with outpatient follow-up with PCP. Discussed findings and plan with patient, who acknowledges understanding and agreement. Shilpa Disclaimer: Shilpa Disclaimer: This electronic medical record was generated, in whole or in part, using a voice recognition dictation system. Departure Departure Impression: Primary Impression: Dizziness Additional Impression: Marijuana use Disposition: HOME, SELF-CARE Condition: STABLE Referrals: NO PCP (PCP) Patient Instructions: Dizziness, [id number], Marijuana Abuse-Brief, Vertigo, [id number] Scripts Meclizine Hcl (MECLIZINE HCL) 25 Mg Tablet 1 TAB PO PRN TID PRN for DIZZINESS, #20 TAB Prov: MICHAEL CODY DO 11/30/19 Justicifation of Admission Dx: Justifications for Admission: Justification of Admission Dx: N/A NIHSS Stroke Scale NIH Stroke Scale: NIH Stroke Scale Response (Comments) Value Level of Consciousness: 0 Alert/Responsive 0 LOC Questions: 0 Answers both correctly 0 LOC Commands: 0 Performs both tasks 0 Best Gaze: 0 Normal 0 Visual: 0 No visual loss 0 Facial Palsy: 0 Normal, symmetrical 0 Motor - Left Arm 0 No drift 0 Motor - Right Arm 0 No drift 0 Motor - Left Leg 0 No drift 0 Motor: Right Leg 0 No drift 0 Limb Ataxia: 0 Absent 0 Sensory: 0 No loss 0 Best Language: 0 Normal 0 Dysathria: 0 Normal 0 Extinction and Inattention: 0 Normal 0 Total 0 MICHAEL CODY DO Nov 29, 2019 23:12
[2019-11-29 23:19] LABS: CALCIUM 8.4 mg/dL (8.5-10.1); CREATININE 1.3 mg/dL (0.7-1.3); GFR 56.5; POTASSIUM 3.8 mmol/L (3.5-5.1); PROTHROMBIN TIME PATIENT 13.8 SEC (11.7-14.0)
[2019-11-29 23:25] LABS: ALBUMIN 3.4 g/dL (3.4-5.0); MAGNESIUM 1.9 mg/dL (1.8-2.4); TOTAL BILIRUBIN 0.4 mg/dL (0.2-1.0); TOTAL PROTEIN 6.8 g/dL (6.4-8.2)
[2019-11-30 00:29] LABS: BILIRUBIN,URINE NEGATIVE (NEG); CLARITY,URINE CLEAR; COLOR,URINE YELLOW; NITRITE,URINE NEGATIVE (NEG); PROTEIN,URINE NEGATIVE (NEG-TRACE); UROBILINOGEN,URINE 0.2 mg/dL (0.2 mg/dL)
[2019-11-30 00:36] LABS: BARBITURATES NEG (NEG); BENZODIAZEPINES NEG (NEG); CANNABINOIDS POS (NEG); COCAINE NEG (NEG); METHADONE NEG (NEG); OPIATES NEG (NEG); PHENCYCLIDINE NEG (NEG)
[2019-11-30 00:38] LABS: BACTERIA,URINE 0 /HPF (0-FEW); RBC,URINE 0 /HPF (0-2); SQUAMOUS EPITHELIAL CELL,UR OCC /LPF; WBC,URINE OCC /HPF (0-4)
[2019-11-30 00:40] LABS: AMPHETAMINE/METHAMPHETAMINE NEG (NEG)
[2019-11-30] MEDS ORDERED: MECL-75 PO (00:45)
[2019-11-30 02:17] VITALS: BP 143/80
--- NOTE | 2019-12-02 06:44 | EKG ---
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
== END 2019-11-30 02:20 | disposition home or self-care (01) ==
LOC: ER 22:10
DX: R42 Dizziness and giddiness (principal); F12.90 Cannabis use, unspecified, uncomplicated; K73.9 Chronic hepatitis, unspecified; Z98.890 Other specified postprocedural states; Z87.891 Personal history of nicotine dependence; Z88.5 Allergy status to narcotic agent
CPT/HCPCS: 36415; 70450; 80053; 80307; 81001; 82553; 83690; 83735; 84484; 85025; 85610; 85730; 93005; 96360; 99285; G0480; J7030; J8597

== ENCOUNTER 2020-04-01 14:10 | Emergency (ER) | payer SELFPAY ==
[~2020-04-01] VITALS: Ht 170.2 cm; Wt 79.2 kg
[~2020-04-01 14:10] MED LIST changes: +MECL-75 PO
[2020-04-01 15:12] VITALS: BP 153/89
[2020-04-01] MEDS ORDERED: LIDOCAINE 1%/EPI 1:100,000 20 ML VIAL. SQ ONE (16:15)
[2020-04-01] MEDS ORDERED: DIPH,PERTUSS(ACELL),TET VAC/PF 0.5 ML SYRINGE. VAX IM ONE (16:45)
--- NOTE | 2020-04-01 17:29 | ED.ADGEN ---
Past Medical History Past Medical History: Hepatitis, Other Additional Past Medical Histor: Hep C, HYPOGLYCEMIC Past Surgical History: Other Additional Past Surgical Histo: Traumatic finger amputation L HAND, lipoma removal Smoking Status: Former Smoker Alcohol Use: None Drug Use: None General Adult EDM: Chief Complaint: LACERATION/AVULSION HPI: HPI: Patient is a 59 year old male who presents emergency department with complaints of a laceration to his right knee. Patient states he was using a roll contour grinder when he accidentally lost control of it and it cut through his pants and cut his right medial leg near the knee. He denies any numbness, tingling, weakness, decreased range of motion, or knee pain. He states he is unsure when his last tetanus shot was. He currently rates his pain a 2 out of 10 on the pain scale he states that the area that was cut stings a little. Review of Systems: Review of Systems: Complete ROS is negative unless otherwise noted in HPI. Current Medications: Current Medications Medications (Trade) Dose Ordered Sig/Michael Start Time Stop Time Status Last Admin Dose Admin Diphtheria/ Tetanus/Acell Pertussis (ADACEL TDap SYRINGE) 0.5 ml ONCE ONCE 04/01/20 16:45 04/01/20 16:46 DC 04/01/20 16:57 0.5 ML Lidocaine/ Epinephrine (LIDOCAINE 1%-EPI 1:100,000 Multi-Dose) 20 ml 1X ONCE 04/01/20 16:15 04/01/20 16:16 DC 04/01/20 16:56 20 ML Allergies: Allergies: Allergies Coded Allergies Type Severity Reaction Last Updated Verified codeine Allergy Severe STOP BREATHING 09/04/15 Yes Physical Exam: PE: See Above Constitutional: Well developed, well nourished, no acute distress, non-toxic appearance. [] HENT: Normocephalic, atraumatic, bilateral external ears normal, oropharynx moist, no oral exudates, nose normal. [] Eyes: PERRLA, EOMI, conjunctiva normal, no discharge. [] Neck: Normal range of motion, no tenderness, supple, no stridor. [] Cardiovascular:Heart rate regular rhythm, no murmur [] Lungs & Thorax: Bilateral breath sounds clear to auscultation [] Abdomen: Bowel sounds normal, soft, no tenderness, no masses, no pulsatile masses. [] Skin: Warm, dry, no erythema, no rash; 2 cm vertical laceration medial to the left knee, no visible foreign body, no surrounding erythema, localized edema at the area of the laceration.. [] Extremities: Left knee: no bony tenderness, no cyanosis, no clubbing, ROM intact Neurologic: Alert and oriented X 3, normal motor function, normal sensory function, no focal deficits noted. [] Psychologic: Affect normal, judgement normal, mood normal. [] Current Patient Data: Vital Signs: Vital Signs Date Time Temp Pulse Resp B/P (MAP) Pulse Ox O2 Delivery O2 Flow Rate FiO2 04/01/20 15:12 98.0 96 20 153/89 (110) 97 Room Air 98.0 EKG: EKG: [] Heart Score: Risk Factors: Risk Factors: DM, Current or recent (<one month) smoker, HTN, HLP, family history of CAD, obesity. Risk Scores: Score 0 - 3: 2.5% MACE over next 6 weeks - Discharge Home Score 4 - 6: 20.3% MACE over next 6 weeks - Admit for Clinical Observation Score 7 - 10: 72.7% MACE over next 6 weeks - Early Invasive Strategies Radiology/Procedures: Radiology/Procedures: Laceration Repair by me: Anesthesia: 1% lidocaine with epinephrine locally Location: Medial left internal Tendon/Joint/Nerves: No injury Foreign body: None detected after copious irrigation and exploration with chlorhexidine and NS Technique: 5 govind Complexity: No subcutaneous sutures/mucosal repair/edge excision Post Closure Length: 3 cm Patient's bleeding was easily controlled in the department and there is no indication of anemia. No evidence of compartment syndrome, neurologic injury, vascular injury, open joint, tendon laceration, or foreign body. Patient is appropriate for outpatient follow up. 48 hour wound check. Scar minimization instructions given. [] Course & Med Decision Making: Course & Med Decision Making Pertinent Labs and Imaging studies reviewed. (See chart for details) 59-year-old male presented to the emergency department with complaints of a laceration to his left inner leg near his knee. Tetanus was updated Laceration repair as documented above. Patient denies or decreased range of motion, x-rays deferred. Patient encouraged to return to the ER follow-up with his primary care doctor in 10 to 14 days to have the govind removed. [] Dragon Disclaimer: Dragon Disclaimer: This electronic medical record was generated, in whole or in part, using a voice recognition dictation system. Departure Departure Impression: Primary Impression: Laceration without foreign body, left knee, initial encounter Additional Impression: Need for Tdap vaccination Disposition: 01 DC HOME SELF CARE/HOMELESS Condition: STABLE Referrals: NO PCP (PCP) Patient Instructions: Laceration Care, Adult, [id number], Staple Wound Closure, [id number], VIS, Tetanus, Diphtheria (Td); Tetanus, Diphtheria, Pertussis (Tdap) - [facility] Additional Instructions: Keep the area clean and dry. You may take Tylenol or ibuprofen as needed for pain.Follow-up with your primary care doctor, or return to the emergency room in 10-14 days to have the govind removed, sooner if you develop signs of infectio n including: redness, warmth, drainage, or a fever. [facility] [address] [place] [address] [facility] [address] [place] [address] [facility] [address] [facility] [place] [address] [facility] [address] [place] [address] Pending Sale To [facility] [address] [place] [address] [facility] [address] [place] [address] [facility] [address] [place] [address] [facility] [address] [place] [address] [facility] [address] [place] [address] [facility] [address] [place] [address] Problem Qualifiers WYATT MADRIGAL APRN Apr 01, 2020 17:29
[2020-04-01] MEDS ORDERED: CEPH-264 PO (22:48)
== END 2020-04-01 18:00 | disposition home or self-care (01) ==
LOC: ER 14:10
DX: S81.012A Laceration without foreign body, left knee, initial encounter (principal); Z87.891 Personal history of nicotine dependence; Z88.5 Allergy status to narcotic agent; Y28.8XXA Contact with other sharp object, undetermined intent, initial encounter; Y93.89 Activity, other specified; Y92.89 Other specified places as the place of occurrence of the external cause; Y99.8 Other external cause status
CPT/HCPCS: 12002; 90471; 90715; 99283; J3490

== ENCOUNTER 2020-04-01 22:02 | Emergency (ER) | payer SELFPAY ==
[~2020-04-01] VITALS: Ht 170.2 cm; Wt 79.1 kg
[2020-04-01 22:10] VITALS: BP 175/86
--- NOTE | 2020-04-01 22:32 | RAD ---
Exam: Left knee 3 views INDICATION: Pain and swelling TECHNIQUE: Frontal, lateral and oblique views of the left knee Comparisons: None FINDINGS: Bone mineralization is normal. No acute or healed fractures. Soft tissues are unremarkable. Joint spaces are well-maintained. IMPRESSION: No acute osseous abnormality. Electronically signed by: Sandra Freire MD (04/01/2020 10:29 PM) JENNY
[2020-04-01] MEDS ORDERED: CEPH-264 PO (22:48)
--- NOTE | 2020-04-01 22:49 | ED.ADGEN ---
Past Medical History Past Medical History: Hepatitis, Other Additional Past Medical Histor: Hep C, HYPOGLYCEMIC Past Surgical History: Other Additional Past Surgical Histo: Traumatic finger amputation L HAND, lipoma removal Smoking Status: Former Smoker Alcohol Use: None Drug Use: None General Adult EDM: Chief Complaint: LOWER EXT PAIN HPI: HPI: Patient is a 59 year old male who presents emergency department with concerns of swelling to his left knee and increased pain. Patient was seen at this ER earlier today and evaluated and treated for a laceration to his medial left lower thigh. During that visit the patient denied any tenderness of his knee. Patient states upon returning home he noticed that the swelling has increased and his knee is more painful. He denies any fever. He reports that there has been some bloody drainage from the lacerated site but denies any purulent drainage. He currently rates the discomfort a 6 out of 10 on pain scale, he denies taking anything for pain at night pain Review of Systems: Review of Systems: Complete ROS is negative unless otherwise noted in HPI. Current Medications: Current Medications Medications (Trade) Dose Ordered Sig/Michael Start Time Stop Time Status Last Admin Dose Admin Acetaminophen (Tylenol) 1,000 mg 1X ONCE 04/01/20 23:00 04/01/20 23:01 DC 04/01/20 23:15 1,000 MG Allergies: Allergies: Allergies Coded Allergies Type Severity Reaction Last Updated Verified codeine Allergy Severe STOP BREATHING 09/04/15 Yes Physical Exam: PE: Constitutional: Well developed, well nourished, no acute distress, non-toxic appearance. [] HENT: Normocephalic, atraumatic, bilateral external ears normal, nose normal. [] Eyes: PERRLA, EOMI, conjunctiva normal, no discharge. [] Neck: Normal range of motion, no stridor. [] Cardiovascular:Heart rate regular rhythm Lungs & Thorax: Respirations even and unlabored, no retractions, no respiratory distress Skin: Warm, dry, no erythema, no rash; stapled laceration noted to distal medial left thigh, mild surrounding edema, no purulent drainage, no bleeding. [] Extremities: Left knee: Tenderness to palpation without crepitus or obvious deformity, 1+ edema, no cyanosis, ROM intact, no joint laxity Neurologic: Alert and oriented X 3, no focal deficits noted. [] Psychologic: Affect normal, judgement normal, mood normal. [] Current Patient Data: Vital Signs: Vital Signs Date Time Temp Pulse Resp B/P (MAP) Pulse Ox O2 Delivery O2 Flow Rate FiO2 04/01/20 22:10 98.2 71 18 175/86 (115) 97 Room Air 98.2 EKG: EKG: [] Heart Score: Risk Factors: Risk Factors: DM, Current or recent (<one month) smoker, HTN, HLP, family histo ry of CAD, obesity. Risk Scores: Score 0 - 3: 2.5% MACE over next 6 weeks - Discharge Home Score 4 - 6: 20.3% MACE over next 6 weeks - Admit for Clinical Observation Score 7 - 10: 72.7% MACE over next 6 weeks - Early Invasive Strategies Radiology/Procedures: Radiology/Procedures: PROCEDURE: KNEE LEFT 3V Exam: Left knee 3 views INDICATION: Pain and swelling TECHNIQUE: Frontal, lateral and oblique views of the left knee Comparisons: None FINDINGS: Bone mineralization is normal. No acute or healed fractures. Soft tissues are unremarkable. Joint spaces are well-maintained. 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 I was available for consultation as needed during the patient's visit in the emergency department. I agree with the clinical impression, plans and disposition.Pertinent Labs and Imaging studies reviewed. (See chart for details) 59-year-old male presents emergency department with complaints of increased pain in his left knee after having govind earlier today. X-ray of the left knee revealed no acute findings. Patient was given a gram of Tylenol p.o. for pain. Prescription was written for Keflex, patient encouraged to take Tylenol or ibuprofen as needed for pain, recommend rest, elevation, and ice to the affected area. Return to the ER or follow-up with primary care doctor in 10 to 14 days to have the govind removed. Sooner if signs of infection develop including fever, redness, and/or purulent drainage. Patient verbalized an understanding of home care, medications, follow-up, and return to ED instructions and was in agreement with the plan of care. [] Dragon Disclaimer: Dragon Disclaimer: This electronic medical record was generated, in whole or in part, using a voice recognition dictation system. Departure Departure Impression: Primary Impression: Left knee pain Additional Impression: Encounter for wound re-check Disposition: 01 DC HOME SELF CARE/HOMELESS Condition: STABLE Referrals: NO PCP (PCP) Patient Instructions: Knee Pain, [id number], Staple Wound Closure, [id number] Additional Instructions: Fill the prescription and take as directed. You may take Tylenol or ibuprofen as needed for pain. I recommend rest, elevation, and ice to the affected area. Return to the ER or follow-up with primary care doctor in 10 to 14 days to have the govind removed, return to the ER sooner if signs of infection develop including fever, redness, and/or purulent drainage. Scripts Cephalexin (KEFLEX) 500 Mg Capsule 500 MG PO QID for 7 Days, #28 CAP 0 Refills Prov: WYATT MADRIGAL APRN 04/01/20 Problem Qualifiers Primary Impression: Left knee pain Chronicity: acute Qualified Codes: M25.562 - Pain in left knee WYATT MADRIGAL APRN Apr 01, 2020 22:49 NURIA LUDWIG MD Apr 02, 2020 00:26
[2020-04-01] MEDS ORDERED: ACETAMINOPHEN 500 MG TABLET PO ONE (23:00)
== END 2020-04-01 23:20 | disposition home or self-care (01) ==
LOC: ER 22:02
DX: M25.562 Pain in left knee (principal); R22.42 Localized swelling, mass and lump, left lower limb; Z87.891 Personal history of nicotine dependence; Z88.5 Allergy status to narcotic agent
CPT/HCPCS: 73562; 99283

== ENCOUNTER 2020-04-09 15:21 | Emergency (ER) | payer SELFPAY ==
[~2020-04-09] VITALS: Ht 170.2 cm; Wt 78.0 kg
[~2020-04-09 15:21] MED LIST changes: +CEPH-264 PO
[2020-04-09] MEDS ORDERED: LIDOCAINE 1% Multi-Dose 20 ML VIAL. INJ ONE (16:00)
--- NOTE | 2020-04-09 16:38 | PHYS DOC ---
Past Medical History Past Medical History: Hepatitis, Other Additional Past Medical Histor: Hep C, HYPOGLYCEMIC Past Surgical History: Other Additional Past Surgical Histo: Traumatic finger amputation L HAND, lipoma removal Smoking Status: Former Smoker Alcohol Use: None Drug Use: None General Adult EDM: Chief Complaint: LACERATION/AVULSION HPI: HPI: Patient is a 59 year old male who presents with was working in his car today when he was using a box knife and the box knife cut his left posterior wrist horizontally involving a 1.5 inch laceration. Patient received a tetanus last week due to a different laceration. Patient denies any pain at this time. Bleeding is controlled. Review of Systems: Review of Systems: Constitutional: Denies fever or chills. [] Eyes: Denies change in visual acuity. [] HENT: Denies nasal congestion or sore throat. [] Respiratory: Denies cough or shortness of breath. [] Cardiovascular: Denies chest pain or edema. [] GI: Denies abdominal pain, nausea, vomiting, bloody stools or diarrhea. [] : Denies dysuria. [] Musculoskeletal: Denies back pain. + Left wrist joint pain. [] Integument: Denies rash. +Laceration to posterior left wrist. [] Neurologic: Denies headache, focal weakness or sensory changes. [] Endocrine: Denies polyuria or polydipsia. [] Lymphatic: Denies swollen glands. [] Psychiatric: Denies depression or anxiety. [] Heart Score: Risk Factors: Risk Factors: DM, Current or recent (<one month) smoker, HTN, HLP, family history of CAD, obesity. Risk Scores: Score 0 - 3: 2.5% MACE over next 6 weeks - Discharge Home Score 4 - 6: 20.3% MACE over next 6 weeks - Admit for Clinical Observation Score 7 - 10: 72.7% MACE over next 6 weeks - Early Invasive Strategies Current Medications: Current Medications Medications (Trade) Dose Ordered Sig/Michael Start Time Stop Time Status Last Admin Dose Admin Lidocaine HCl (Lidocaine 1% 20ml Vial) 20 ml 1X ONCE 04/09/20 16:00 04/09/20 16:01 DC Allergies: Allergies: Allergies Coded Allergies Type Severity Reaction Last Updated Verified codeine Allergy Severe STOP BREATHING 09/04/15 Yes Physical Exam: PE: Constitutional: Well developed, well nourished, no acute distress, non-toxic appearance. [] HENT: Normocephalic, atraumatic, bilateral external ears normal, oropharynx moist, no oral exudates, nose normal. [] Eyes: PERRLA, EOMI, conjunctiva normal, no discharge. [] Neck: Normal range of motion, no tenderness, supple, no stridor. [] Cardiovascular:Heart rate regular rhythm, no murmur [] Lungs & Thorax: Bilateral breath sounds clear to auscultation [] Abdomen: Bowel sounds normal, soft, no tenderness, no masses, no pulsatile masses. [] Skin: Warm, dry, no erythema, no rash. 1.5 cm laceration to posterior left wrist. [] Back: No tenderness, no CVA tenderness. [] Extremities: No tenderness, no cyanosis, no clubbing, ROM intact, no edema. [] Neurologic: Alert and oriented X 3, normal motor function, normal sensory function, no focal deficits noted. [] Psychologic: Affect normal, judgement normal, mood normal. [] Current Patient Data: Vital Signs: Vital Signs Date Time Temp Pulse Resp B/P (MAP) Pulse Ox O2 Delivery O2 Flow Rate FiO2 04/09/20 15:36 98.0 76 18 161/87 (111) 97 Room Air 98.0 EKG: EKG: [] Radiology/Procedures: Radiology/Procedures: [] Course & Med Decision Making: Course & Med Decision Making Pertinent Labs and Imaging studies reviewed. (See chart for details) See HPI. Alert and oriented x4. Speaks in full clears sentences. Amatory with steady gait. He has full control over the extremity and can bend and wiggle fingers and has full range of motion of the wrist. There is no underlying arterial, muscle or ligament lacerations. I can see the ligament and it is intact. Radial pulse strong present. Skin pink warm and dry. No swelling. No deformity seen. Laceration repair Location: Left posterior wrist, 1.5 inches horizontal Local anesthesia: 1% lidocaine Interrupted sutures/Internal sutures: 7 sutures using 5-0 Nerve/ligament/muscle damage: None and no foreign body seen with copious irrigation and cleaning. Cleaning and irrigation: Chlorhexidine, soap and water. The appropriate timeout was taken. The area was prepped and draped in the usual sterile fashion. The wound was copiously irrigated with normal saline and chlorhexidine. Patient tolerated well without complication. Dressing was applied to the area follow-up education is given to observe for signs and symptoms of infection, bleeding and to follow-up promptly if these occur. Patient can return in 48 hours for a wound recheck. Sutures to be removed in 7 to 10 days. [] Dragon Disclaimer: Dragon Disclaimer: This electronic medical record was generated, in whole or in part, using a voice recognition dictation system. Departure Departure Impression: Primary Impression: Laceration Disposition: 01 DC HOME SELF CARE/HOMELESS Condition: STABLE Referrals: NO PCP (PCP) Patient Instructions: Laceration Care, Adult Additional Instructions: Follow-up with primary care provider as needed. Watch for signs and symptoms of infection. Sutures need to be removed in 10 days. LASHA AVILA APRN Apr 09, 2020 16:38
[2020-04-09 16:56] VITALS: BP 137/70
== END 2020-04-09 17:04 | disposition home or self-care (01) ==
LOC: ER 15:21
DX: S61.512A Laceration without foreign body of left wrist, initial encounter (principal); K75.9 Inflammatory liver disease, unspecified; Z87.891 Personal history of nicotine dependence; Z98.890 Other specified postprocedural states; Z88.5 Allergy status to narcotic agent; W26.0XXA Contact with knife, initial encounter; Y93.89 Activity, other specified; Y92.89 Other specified places as the place of occurrence of the external cause; Y99.8 Other external cause status
CPT/HCPCS: 12001; 99282; J3490

== ENCOUNTER 2020-04-11 10:08 | Emergency (ER) | payer SELFPAY ==
[~2020-04-11] VITALS: Ht 170.2 cm; Wt 79.0 kg
[2020-04-11 10:14] VITALS: BP 172/84
--- NOTE | 2020-04-11 10:19 | PHYS DOC ---
Past Medical History Past Medical History: Hepatitis, Other Additional Past Medical Histor: Hep C, HYPOGLYCEMIC Past Surgical History: Other Additional Past Surgical Histo: Traumatic finger amputation L HAND, lipoma removal Smoking Status: Former Smoker Alcohol Use: None Drug Use: None General Adult EDM: Chief Complaint: SUTURE/STAPLE REMOVAL HPI: HPI: History gained from patient. Patient is a 59-year-old male who presents for staple removal. He states approximate 10 days ago he fell cutting the left kneecap. 5 govind were placed at that time. He returns today for removal. Denies any issues with the wound. Denies bleeding or purulent drainage. No other complaints. Review of Systems: Review of Systems: Constitutional: Denies fever or chills. [] Eyes: Denies change in visual acuity. [] HENT: Denies nasal congestion or sore throat. [] Respiratory: Denies cough or shortness of breath. [] Cardiovascular: Denies chest pain or edema. [] GI: Denies abdominal pain, nausea, vomiting, bloody stools or diarrhea. [] : Denies dysuria. [] Musculoskeletal: Denies back pain or joint pain. [] Integument: Positive for laceration Neurologic: Denies headache, focal weakness or sensory changes. [] Endocrine: Denies polyuria or polydipsia. [] Lymphatic: Denies swollen glands. [] Psychiatric: Denies depression or anxiety. [] Heart Score: Risk Factors: Risk Factors: DM, Current or recent (<one month) smoker, HTN, HLP, family history of CAD, obesity. Risk Scores: Score 0 - 3: 2.5% MACE over next 6 weeks - Discharge Home Score 4 - 6: 20.3% MACE over next 6 weeks - Admit for Clinical Observation Score 7 - 10: 72.7% MACE over next 6 weeks - Early Invasive Strategies Allergies: Allergies: Allergies Coded Allergies Type Severity Reaction Last Updated Verified codeine Allergy Severe STOP BREATHING 09/04/15 Yes Physical Exam: PE: Constitutional: Well developed, well nourished, no acute distress, non-toxic appearance. [] HENT: Normocephalic, atraumatic, bilateral external ears normal, oropharynx moist, no oral exudates, nose normal. [] Eyes: PERRLA, EOMI, conjunctiva normal, no discharge. [] Neck: Normal range of motion, no tenderness, supple, no stridor. [] Cardiovascular:Heart rate regular rhythm, no murmur [] Lungs & Thorax: Bilateral breath sounds clear to auscultation [] Abdomen: soft, no tenderness, no masses, no pulsatile masses. [] Skin: Warm, dry, no erythema, no rash. [] Back: No tenderness, no CVA tenderness. [] Extremities: 1.5 cm linear laceration overlying the left patella. Appears well- healed. [place] in place. No surrounding induration or erythema. Wound appears well approximated. Neurologic: Alert and oriented X 3, normal motor function, normal sensory function, no focal deficits noted. [] Psychologic: Affect normal, judgement normal, mood normal. [] EKG: EKG: [] Radiology/Procedures: Radiology/Procedures: [] Course & Med Decision Making: Course & Med Decision Making Pertinent Labs and Imaging studies reviewed. (See chart for details) [] Patient is a 59-year-old male who presents with chief complaint of staple removal. 5 govind removed from the left knee. No signs of infection. Wound appears well-healed. Stable for discharge. Dragon Disclaimer: [employer] Disclaimer: This electronic medical record was generated, in whole or in part, using a voice recognition dictation system. Departure Departure Impression: Primary Impression: Encounter for removal of govind Disposition: 01 DC HOME SELF CARE/HOMELESS Condition: STABLE Referrals: NO PCP (PCP) Patient Instructions: Staple Removal, Care After ANNY IRWIN DO Apr 11, 2020 10:18
== END 2020-04-11 10:24 | disposition home or self-care (01) ==
LOC: ER 10:08
DX: S81.012D Laceration without foreign body, left knee, subsequent encounter (principal); K73.9 Chronic hepatitis, unspecified; Z87.891 Personal history of nicotine dependence; Z88.5 Allergy status to narcotic agent; Y28.8XXD Contact with other sharp object, undetermined intent, subsequent encounter
CPT/HCPCS: 99281

== ENCOUNTER 2020-04-19 17:39 | Emergency (ER) | payer SELFPAY ==
[~2020-04-19] VITALS: Ht 170.2 cm; Wt 32.0 kg
[2020-04-19 18:15] VITALS: BP 156/85
--- NOTE | 2020-04-19 18:40 | PHYS DOC ---
Past Medical History Past Medical History: Hepatitis, Other Additional Past Medical Histor: Hep C, HYPOGLYCEMIC Past Surgical History: Other Additional Past Surgical Histo: Traumatic finger amputation L HAND, lipoma removal Smoking Status: Former Smoker Alcohol Use: None Drug Use: None General Adult EDM: Chief Complaint: SUTURE/STAPLE REMOVAL HPI: HPI: Patient is a 59 year old male presents emergency department with chief complaint that he needs his sutures removed it replaced here 10 days ago. Patient reports that he originally had 7 sutures placed but 3 had come untied and fell out by themselves, patient noted that the skin did not separate where the sutures were so he did not worry about it, he continued to clean it twice a day had no problems and showed up today for suture removal. Patient has no other questions or concerns, denies numbness or tingling to the site, denies infectious process concerns. Patient denies any fever or chills. Review of Systems: Review of Systems: 14 body systems of review of systems have been reviewed. See HPI for pertinent positives and negative responses, otherwise all other systems are negative, nonpertinent or noncontributory. Heart Score: Risk Factors: Risk Factors: DM, Current or recent (<one month) smoker, HTN, HLP, family history of CAD, obesity. Risk Scores: Score 0 - 3: 2.5% MACE over next 6 weeks - Discharge Home Score 4 - 6: 20.3% MACE over next 6 weeks - Admit for Clinical Observation Score 7 - 10: 72.7% MACE over next 6 weeks - Early Invasive Strategies Allergies: Allergies: Allergies Coded Allergies Type Severity Reaction Last Updated Verified codeine Allergy Severe STOP BREATHING 09/04/15 Yes Physical Exam: PE: Constitutional: Well developed, well nourished, no acute distress, non-toxic appearance. HENT: Normocephalic, atraumatic, bilateral external ears normal, oropharynx moist, no oral exudates, nose normal. Eyes: PERRLA, EOMI, conjunctiva normal, no discharge. Neck: Normal range of motion, no tenderness, supple, no stridor. Cardiovascular:Heart rate regular rhythm, no murmur Lungs & Thorax: Bilateral breath sounds clear to auscultation Abdomen: Bowel sounds normal, soft, no tenderness, no masses, no pulsatile masses. Skin: Warm, dry, no erythema, no rash. Patient has poor intact interrupted sutures to the right anterior wrist distal aspect. Edges well approximated, slight mild erythema around suture insertion sites without drainage or signs of infectious process. 2+ distal cap refill, full AROM/PROM of distal joints. No signs of tendon abnormalities noted. No compartment syndrome symptoms noted. Back: No tenderness, no CVA tenderness. Extremities: No tenderness, no cyanosis, no clubbing, ROM intact, no edema. Neurologic: Alert and oriented X 3, normal motor function, normal sensory function, no focal deficits noted. Psychologic: Affect normal, judgement normal, mood normal. Current Patient Data: Vital Signs: Vital Signs Date Time Temp Pulse Resp B/P (MAP) Pulse Ox O2 Delivery O2 Flow Rate FiO2 04/19/20 18:15 98.2 73 18 156/85 (108) 97 Room Air 98.2 EKG: EKG: [] Radiology/Procedures: Radiology/Procedures: [] Course & Med Decision Making: Course & Med Decision Making Pertinent Labs and Imaging studies reviewed. (See chart for details) 59-year-old patient first emergency room dated he originally received 7 sutures, however during exam there was only 4 remaining, there were no signs or symptoms of infectious process, compartment syndrome, or other abnormalities noted, the remaining 4 interrupted nylon sutures were removed without difficulty, no blood or other body fluids expelled from suture removal sites. Patient was given verbal instructions on continual wound care and wound cleaning. Patient gave verbal understanding of discharge home instructions, patient discharged home without incident. Dragon Disclaimer: Dragon Disclaimer: This electronic medical record was generated, in whole or in part, using a voice recognition dictation system. Departure Departure Impression: Primary Impression: Encounter for removal of sutures Disposition: 01 DC HOME SELF CARE/HOMELESS Condition: GOOD Referrals: NO PCP (PCP) Additional Instructions: Your sutures have been removed, continue your daily cleansing until skin is well-healed. There are no signs and symptoms of infection at this time, please return to the emergency department for worsening symptoms or other concerns. EMERGENCY DEPARTMENT GENERAL DISCHARGE INSTRUCTIONS Thank you for coming to [facility] Emergency Department (ED) today and trusting us with you care. We trust that you had a positive experience in our Emergency Department. If you wish to speak to the department management, you may call the Director at [phone]. YOUR FOLLOW UP INSTRUCTIONS ARE FOLLOWS: 1. Do you have a private Doctor? If you do not have a private doctor, please ask for a resource list of physicians or clinics that may be able to assist you with follow up care. 2. The Emergency Physicain has interpreted your x-rays. The X-Ray specialist will also review them. If there is a change in the findings, you will be notified in 48 hours when at all possible. 3. A lab test or culture has been done, your results will be reviewed and you will be notified if you need a change in treatment. ADDITIONAL INSTRUCTIONS AND INFORMATION: 1. Your care today has been supervised by a physician who is specially trained in emergency care. Many problems require more than one evaluation for a complete diagnosis and treatment. We recommend that you schedule your follow up appointment as recommended to ensure complete treatment of you illness or injury. If you are unable to obtain follow up care and continue to have a problem, or if your condition worsens, we recommend that you return to the ED. 2. We are not able to safely determine your condition over the phone nor are we able to give sound medical advice over the phone. For these safety reasons, if you call for medical advice we will ask you to come to the ED for further evaluation. 3. If you have any questions regarding these discharge instructions please call the ED at [phone]. SAFETY INFORMATION: In the interest of safety, wellness, and injury prevention; we encourage you to wear your sealbelt, if you smoke; quite smoking, and we encourage family to use a protective helmet for bicycling and other sporting events that present an increased risk for head injury. IF YOUR SYMPTOMS WORSEN OR NEW SYMPTOMS DEVELOP, OR YOU HAVE CONCERNS ABOUT YOUR CONDITION; OR IF YOUR CONDITION WORSENS WHILE YOU ARE WAITING FOR YOUR FOLLOW UP AP POINTMENT; EITHER CONTACT YOUR PRIMARY CARE DOCTOR, THE PHYSICIAN WHOSE NAME AND NUMBER YOU WERE GIVEN, OR RETURN TO THE ED IMMEDIATELY. MICHAEL SALMERON APRN Apr 19, 2020 18:40
== END 2020-04-19 18:44 | disposition home or self-care (01) ==
LOC: ER 17:39
DX: S61.511D Laceration without foreign body of right wrist, subsequent encounter (principal); Z87.891 Personal history of nicotine dependence; Z88.5 Allergy status to narcotic agent; W18.39XD Other fall on same level, subsequent encounter
CPT/HCPCS: 99281